=== PATIENT | female | born 1940 ===

== ENCOUNTER 2020-08-07 08:55 | Inpatient (IN) | payer MEDICARE, SELFPAY ==
[2020-08-07] VITALS (26 sets, daily range): BP systolic 103–219; BP diastolic 43–97; PULSE 58–98; RESP 11–21; TEMP 35.8–37.1; O2SAT 90–98; BMI 21.9; BMI 22.1
--- NOTE | 2020-08-07 | DI.RAD.S_ITS ---
PROCEDURE: XR PELVIS 1-2V INDICATIONS: INTER OP LEFT LINSEY TECHNIQUE: Intra-operative view of the pelvis and hip acquired. COMPARISON: None. FINDINGS: Bones: Intraoperative devices prior to placement of arthroplasty prostheses are in expected positions. No fractures or suspicious bony lesions. Soft tissues: Overlying surgical instruments are present, along with other intraoperative changes. Vascular stent in the right leg. IMPRESSION: Expected intraoperative appearance for left hemiarthroplasty. Dictated by: Nirali Virk M.D. on 08/08/2020 at 10:39 Approved by: Nirali Virk M.D. on 08/08/2020 at 10:40
--- NOTE | 2020-08-07 | DI.RAD.S_ITS ---
PROCEDURE: XR PELVIS 1-2V INDICATIONS: POST OP TECHNIQUE: 1 view of the lower pelvis acquired. COMPARISON: [facility], , XR PELVIS 1-2V, 08/07/2020, 16:48. FINDINGS: Bones: Patient is status post left hip arthroplasty, with hardware components in expected positions. The hip joint appears congruent. The visualized bony structures appear intact. Diffuse demineralization. Soft tissues: Overlying postoperative changes are noted. No suspicious soft tissue densities. Right proximal femoral vascular stent. IMPRESSION: Expected appearance of left hip arthroplasty. Dictated by: Nirali Virk M.D. on 08/08/2020 at 10:47 Approved by: Nirali Virk M.D. on 08/08/2020 at 10:48
--- NOTE | 2020-08-07 08:55 | ED.LOWEXIN ---
HPI - Extremity Injury (Lower) General Chief Complaint: Fall Stated Complaint: GLF Time Seen by Provider: 08/07/20 08:57 Source: patient, family and EMS Mode of arrival: EMS Limitations: no limitations History of Present Illness HPI Narrative: Patient is a 79-year-old female with history of peripheral vascular disease and hypertension presenting today after ground level fall with left hip pain. She says she was getting up to use the bathroom when she slipped and fell landing on her left hip. Not ambulatory afterwards. Denies any dizziness or chest pain, no head injury or loss of consciousness. She denies numbness or tingling. She does have severe peripheral vascular disease especially in her right leg where she is noted to have black and toes. She says that has been there for a long time she has been evaluated no surgery indicated at this time. She has arterial stents in her right leg. Related Data Home Medications Medication Instructions Recorded Confirmed aspirin [Aspirin Low Dose] 81 mg PO DAILY 08/07/20 08/07/20 atenolol 25 mg PO DAILY 08/07/20 08/07/20 clopidogrel 75 mg PO DAILY 08/07/20 08/07/20 Allergies Allergy/AdvReac Type Severity Reaction Status Date / Time Penicillins Allergy Mild Rash Verified 08/07/20 08:59 Review of Systems Review of Systems Narrative: GENERAL: Denies chills, fatigue, malaise, fever, sweats, travel HEENT: Denies sinus pain, ear pain, sore throat, difficulty swallowing, neck pain RESPIRATORY: Denies dyspnea, cough, wheezing, hemoptysis, sputum. CARDIOVASCULAR: Denies chest pain, palpitations, orthopnea, edema GASTROINTESTINAL: Denies nausea, vomiting, abdominal pain, diarrhea, constipation, melena. : Denies dysuria, frequency, incontinence, hematuria, urinary retention, flank pain. MUSCULOSKELETAL: See HPI SKIN: See HPI NEUROLOGIC: Denies weakness, dizziness, headache, numbness, change in speech, confusion PSYCHIATRIC: No concerning psychosocial issues. 12 point review of systems is negative except for those stated above and HPI Patient History Medical History Hypertension Peripheral vascular disease Surgical History (Updated 08/07/20 @ 11:44 by Dominic Mckeon DO) Hx of tubal ligation Social History household members: none Smoking Status: Never smoker Exam Initial Vital Signs Initial Vital Signs: Vital Signs Temperature 98 F 08/07/20 08:59 Pulse Rate 75 08/07/20 08:59 Respiratory Rate 18 08/07/20 08:59 Blood Pressure 219/97 H 08/07/20 08:59 Pulse Oximetry 97 08/07/20 08:59 GENERAL: Alert pleasant 79-year-old female and in no acute distress. HEENT: Head atraumatic,EOMI, pupils reactive, face symmetric, moist mucous membranes CARDIOVASCULAR: Regular rate and rhythm without murmurs, rubs or gallops. RESPIRATORY: Breath sounds equal bilaterally, no wheezes rales or rhonchi. ABDOMEN: Soft, nontender. Normoactive bowel sounds all 4 quadrants. No guarding or rebound. EXTREMITIES: Normal range of motion, no clubbing or edema. Neurovascularly intact Tender left hip knee is within normal limits ankle within normal limits. Difficult to palpate left pedal pulse but foot is warm. NEUROLOGICAL: Alert and oriented x4.Normal gait and speech. SKIN: Right toes are dry black and gangrenous and difficult to palpate a right pedal pulse. Left foot is erythematous blanchable but no blackening. Course Orders Ordered: ED Orders 08/07/20 08:54 XR hip w pel if done LT 2V Stat 08/07/20 09:13 XR chest 1V Stat 08/07/20 09:16 EKG-12 Lead Stat 08/07/20 09:20 Complete Blood Count AUTO DIFF Stat Comprehensive Metabolic Panel Stat Troponin & CK Cardiac Panel Stat Aspirin (Aspirin Ec 81 Mg Tablet) 81 mg PO DAILY ARTUR Atenolol (Atenolol 50 Mg Tablet) 25 mg PO DAILY ARTUR Sodium Chloride (Normal Saline 0.9%) 1,000 mls @ 100 mls/hr IV CONT ARTUR Stop: 08/07/20 21:29 Last Admin: 08/07/20 11:45 Dose: 100 mls/hr Documented by: Morphine Sulfate (Morphine 2 Mg/Ml Inj) 2 mg IV Q4HR PRN PRN Reason: Pain, Moderate (4-6) Naloxone HCl (Naloxone 0.4 Mg/Ml Vial) 0.2 mg IV Q2MIN PRN PRN Reason: Opiate Reversal Ondansetron HCl (Ondansetron 4 Mg/2 Ml Inj) 4 mg IV Q8HR PRN PRN Reason: Nausea And Vomiting Sennosides (Sennosides 8.6 Mg Tablet) 17.2 mg PO BEDTIME PRN PRN Reason: Constipation Discontinued Medications Cyclobenzaprine HCl (Cyclobenzaprine 5 Mg Tablet) 5 mg PO NOW ONE Stop: 08/07/20 11:28 Morphine Sulfate (Morphine 2 Mg/Ml Inj) 2 mg IV NOW ONE Stop: 08/07/20 09:32 Last Admin: 08/07/20 10:03 Dose: 2 mg Documented by: SHILOH Ondansetron HCl (Ondansetron 4 Mg/2 Ml Inj) 4 mg IV NOW ONE Stop: 08/07/20 09:32 Last Admin: 08/07/20 10:02 Dose: 4 mg Documented by: SHILOH Vital Signs Vital signs: Vital Signs - 8 hr 08/07/20 08:59 08/07/20 09:19 08/07/20 09:30 Temperature 98 F Pulse Rate 75 66 66 Respiratory Rate 18 Blood Pressure 219/97 H Pulse Oximetry 97 98 08/07/20 10:00 Temperature Pulse Rate 72 Respiratory Rate Blood Pressure 199/83 H Pulse Oximetry 98 MDM - Extremity Injury (Lower) Lab Data Attestation: I reviewed the patient's lab results. Result diagrams: 08/07/20 09:20 08/07/20 09:20 Labs: Lab Results 08/07/20 08/07/20 Range/Units 09:20 09:20 WBC 12.2 H (4.5-11.0) X10^3/uL RBC 4.09 (4.0-5.2) X10^6/uL Hgb 12.0 (12.0-16.0) g/dL Hct 36.1 (36-46) % MCV 88.3 (80-100) fL MCH 29.3 (26-34) PG MCHC 33.2 (30-36) % RDW 13.7 (11.6-14.8) % Plt Count 231 (150-400) X10^3/uL Neut % (Auto) 89.2 H (50-75) % Lymph % (Auto) 5.0 L (25-40) % [place] % (Auto) 4.7 (3-14) % Eos % (Auto) 0.8 L (2-4) % Baso % (Auto) 0.3 (0-2) % Neut # (Auto) 00668 H (1308-0231) /uL Lymph # (Auto) 600 L (8854-8645) /uL [place] # (Auto) 600 (0-900) /uL Eos # (Auto) 100 (0-450) /uL Baso # (Auto) 0 (0-100) /uL Sodium 136 L (137-145) mmol/L Potassium 4.0 (3.4-5.1) mmol/L Chloride 107 (98-107) mmol/L Carbon Dioxide 24 (22-32) mmol/L BUN 19 H (7-17) mg/dL Creatinine 0.56 (0.52-1.04) mg/dL Estimated GFR > 60.0 (>60) mL/min BUN/Creatinine Ratio 33.9 H (6-22) Glucose 125 H (80-110) mg/dL Calcium 9.1 (8.4-10.2) mg/dL Total Bilirubin 0.2 (0.2-1.3) mg/dL AST 29 (14-36) IU/L ALT 20 (<35) IU/L Alkaline Phosphatase 118 (38-126) U/L Total Creatine Kinase 49 (30-135) U/L CK-MB (CK-2) TNP CK-MB (CK-2) Rel Index TNP Troponin I < 0.012 (0.01-0.034) ng/mL Total Protein 7.6 (6.3-8.2) g/dL Albumin 4.2 (3.5-5.0) g/dL Globulin 3.4 (1.7-4.1) g/dL Albumin/Globulin Ratio 1.2 (1.0-2.8) Imaging Data Extremity x-ray #1: Radiologist's Impression: PROCEDURE: XR HIP W PEL IF DONE LT 2V INDICATIONS: fall pain TECHNIQUE: AP pelvis with lateral view(s) of the left hip(s). COMPARISON: None. FINDINGS: Bones: There is a left femoral neck fracture with mild displacement. Fracture fragment is also noted adjacent to the greater trochanter. However, no clearly identified intratrochanteric fracture is noted. Soft tissues: The visualized bowel gas pattern is normal. No suspicious soft tissue calcifications. IMPRESSION: Mild displacement of left femoral neck fracture. Dictated by: Ciara Alan M.D. on 08/07/2020 at 9:24 Chest x-ray: Radiologist's Impression: PROCEDURE: XR CHEST 1V INDICATIONS: HIP PAIN AFTER GROUND LEVEL FALL TECHNIQUE: One view of the chest was acquired. COMPARISON: None. FINDINGS: Surgical changes and devices: None. Lungs and pleura: A nodular density in the right lower lung zone is most likely caused by the costochondral calcification. Lungs are otherwise clear. No pleural effusions or pneumothorax. Mediastinum: Mediastinal contours appear normal. Heart size is normal. Bones and chest wall: No suspicious bony lesions. Overlying soft tissues appear unremarkable. IMPRESSION: 1. No acute cardiopulmonary disease. 2. A nodular density in the right lower lung zone is most likely caused by clots chondral calcification. But a lung nodule cannot be confidently excluded. A nonurgent chest CT is suggested for follow-up. Dictated by: Kathrin Steinberg M.D. on 08/07/2020 at 9:51 ECG Data Attestation: I personally reviewed and interpreted this ECG as follows: Prior ECG tracings: not available for review Interpretation: Normal sinus rhythm rate 71 p.r. interval 130 QRS [address] changes or T-wave inversions MDM Narrative Medical decision making narrative: Patient obviously has severe peripheral vascular does disease. And is quite hypertensive without signs of end-organ damage. She is given morphine to help with the pain and spasming. 10:05 Dr. Gould, orthopedics did patient's symptoms test results and reviewed x-ray agrees with admit to hospitalist. Keep NPO possible OR this evening versus tomorrow. 10:09am- Dr. burch hospitalist updated in patient's symptoms test results agrees with admission Discharge Plan Departure Patient Disposition: Admitted As Inpatient Clinical Impression: Closed fracture of left hip Qualifiers: Encounter type: initial encounter Qualified Code(s): S72.002A - Fracture of unspecified part of neck of left femur, initial encounter for closed fracture Admit Date/Time: 08/07/20 10:18 Admit Provider: Jazmín Burch
--- NOTE | 2020-08-07 09:13 | DI.RAD.S_ITS ---
PROCEDURE: XR CHEST 1V INDICATIONS: HIP PAIN AFTER GROUND LEVEL FALL TECHNIQUE: One view of the chest was acquired. COMPARISON: None. FINDINGS: Surgical changes and devices: None. Lungs and pleura: A nodular density in the right lower lung zone is most likely caused by the costochondral calcification. Lungs are otherwise clear. No pleural effusions or pneumothorax. Mediastinum: Mediastinal contours appear normal. Heart size is normal. Bones and chest wall: No suspicious bony lesions. Overlying soft tissues appear unremarkable. IMPRESSION: 1. No acute cardiopulmonary disease. 2. A nodular density in the right lower lung zone is most likely caused by clots chondral calcification. But a lung nodule cannot be confidently excluded. A nonurgent chest CT is suggested for follow-up. Dictated by: Kathrin Steinberg M.D. on 08/07/2020 at 9:51 Approved by: Kathrin Steinberg M.D. on 08/07/2020 at 9:53
[2020-08-07 09:27] LABS: Add Manual Diff / Slide Review NO; Basophils Absolute Auto 0 /uL (0-100); Basophils Percent Auto 0.3 % (0-2); Eosinophils Absolute Auto 100 /uL (0-450); Eosinophils Percent Auto 0.8 % (2-4); Hematocrit 36.1 % (36-46); Lymphocytes Absolute Auto 600 /uL (1100-4500); Mean Corpuscular HGB Conc 33.2 % (30-36); Mean Corpuscular Hemoglobin 29.3 PG (26-34); Mean Corpuscular Volume 88.3 fL (80-100); Monocytes Absolute Auto 600 /uL (0-900); Monocytes Percent Auto 4.7 % (3-14); Neutrophils Absolute Auto 10900 /uL (1500-7000); Neutrophils Percent Auto 89.2 % (50-75); Platelet Count 231 X10^3/uL (150-400); Red Blood Cell Count 4.09 X10^6/uL (4.0-5.2); Red Cell Distribution Width 13.7 % (11.6-14.8); White Blood Cell Count 12.2 X10^3/uL (4.5-11.0)
[2020-08-07 09:40] LABS: Alanine Aminotransferase 20 IU/L (<35); Albumin 4.2 g/dL (3.5-5.0); Albumin Globulin Ratio 1.2 (1.0-2.8); Alkaline Phosphatase 118 U/L (38-126); Aspartate Aminotransferase 29 IU/L (14-36); BUN Creatinine Ratio 33.9 (6-22); Bilirubin Total 0.2 mg/dL (0.2-1.3); Blood Urea Nitrogen 19 mg/dL (7-17); Calcium 9.1 mg/dL (8.4-10.2); Carbon Dioxide 24 mmol/L (22-32); Chloride 107 mmol/L (98-107); Creatine Kinase 49 U/L (30-135); Estimated Glomerular Filt Rate > 60.0 mL/min (>60); Globulin 3.4 g/dL (1.7-4.1); Glucose 125 mg/dL (80-110); HEMOLYSIS < 15 (0-50); Sodium 136 mmol/L (137-145); Total Protein 7.6 g/dL (6.3-8.2)
[2020-08-07 09:51] LABS: Troponin I < 0.012 ng/mL (0.01-0.034)
[2020-08-07] MEDS: ONDANSETRON 4 MG/2 ML INJ IV (10:02)
[2020-08-07] MEDS: MORPHINE 2 MG/ML INJ IV ×2 (10:03→12:14)
--- NOTE | 2020-08-07 10:42 | P.CONS_ITS ---
History of Present Illness Consult details Date Patient Seen: 08/07/20 Time Patient Seen: 10:42 Chief complaint: GLF Reason for consult: Displaced left intra-capsular femoral neck fracture Narrative: Patient is a 79-year-old female who had a ground level fall this morning. The fall does not appear to be with a 2 syncopal episode. She did not strike her head. She did not lose consciousness. After fall she was unable to ambulate but she was able +off of into a chair. Prior to her fall she is not have any history of left hip pain. She is a community ambulator without assistive devices. She lives independently i apartment on her daughter's property. Of note patient has multiple stents in the right lower extremity for peripheral vascular disease. She follows with Dr. Victor at [facility] for peripheral vascular disease. Patient takes Plavix and aspirin for blood thinners. Meds Home Medications and Allergies Home Medications Medication Instructions Recorded Confirmed Type aspirin [Aspirin Low Dose] 81 mg PO DAILY 08/07/20 08/07/20 History atenolol 25 mg PO DAILY 08/07/20 08/07/20 History clopidogrel 75 mg PO DAILY 08/07/20 08/07/20 History Allergies Allergy/AdvReac Type Severity Reaction Status Date / Time Penicillins Allergy Mild Rash Verified 08/07/20 08:59 Exam Vital Signs (past 8 hours): - 08/07/20 08:59 Temperature 98 F Pulse Rate 75 Respiratory Rate 18 Blood Pressure 219/97 H Pulse Oximetry 97 Oxygen Delivery Method Room Air Narrative Exam Narrative: Neurovascular intact in left lower extremity. No skin breaks over the left hip. Hip is held in a slightly flexed and externally rotated position Objective Labs Result Diagrams: 08/07/20 09:20 08/07/20 09:20 Labs: Laboratory Results - last 24 hr 08/07/20 08/07/20 09:20 09:20 WBC 12.2 H RBC 4.09 Hgb 12.0 Hct 36.1 MCV 88.3 MCH 29.3 MCHC 33.2 RDW 13.7 Plt Count 231 Neut % (Auto) 89.2 H Lymph % (Auto) 5.0 L [place] % (Auto) 4.7 Eos % (Auto) 0.8 L Baso % (Auto) 0.3 Neut # (Auto) 15152 H Lymph # (Auto) 600 L [place] # (Auto) 600 Eos # (Auto) 100 Baso # (Auto) 0 Sodium 136 L Potassium 4.0 Chloride 107 Carbon Dioxide 24 BUN 19 H Creatinine 0.56 Estimated GFR > 60.0 BUN/Creatinine Ratio 33.9 H Glucose 125 H Calcium 9.1 Total Bilirubin 0.2 AST 29 ALT 20 Alkaline Phosphatase 118 Total Creatine Kinase 49 CK-MB (CK-2) TNP CK-MB (CK-2) Rel Index TNP Troponin I < 0.012 Total Protein 7.6 Albumin 4.2 Globulin 3.4 Albumin/Globulin Ratio 1.2 Assessment & Plan Assessment & Plan narrative: Patient is a 79-year-old female who had a mechanical ground level fall without loss of consciousness earlier this a.m.. She is stained a displaced intracapsular femoral neck fracture of the left hip. Of note patient has multiple stents in the right lower extremity but no stents in the left lower extremity per the patient. I had a long discussion with the patient regarding her fracture as well as possible treatment options. I think patient would benefit from a left hip hemiarthroplasty. Patient will be admitted to the medicine service. Plan would be to perform this left hip hemiarthroplasty later today. - СВЕТЛАНА LLE - NPO - OCTOR for left hip hemiarthroplasty Time Spent With Patient Time with patient: Greater than 35 minutes
--- NOTE | 2020-08-07 11:37 | P.HP_ITS ---
History of Present Illness History of Present Illness Chief complaint: GLF Patient History Medical History Hypertension Peripheral vascular disease Surgical History (Updated 08/07/20 @ 11:44 by Dominic Mckeon DO) Hx of tubal ligation Family & Social History Social History: household members none Prior Living Arrangements House Safety & Behavioral: Feels Safe in Current Yes Environment Been Physically Hurt or No Threatened By a Person Suicidal Ideation Description None Suicide Plan Description No Plan Tobacco & Substance use: Smoking Status Never smoker alcohol intake frequency holiday/special occasion Substance Use Type does not use Meds Home Medications and Allergies Home Medications Medication Instructions Recorded Confirmed Type aspirin [Aspirin Low Dose] 81 mg PO DAILY 08/07/20 08/07/20 History atenolol 25 mg PO DAILY 08/07/20 08/07/20 History clopidogrel 75 mg PO DAILY 08/07/20 08/07/20 History Allergies Allergy/AdvReac Type Severity Reaction Status Date / Time Penicillins Allergy Mild Rash Verified 08/07/20 08:59 Review of Systems Review of Systems ROS: Yes All systems reviewed with the patient and are negative except as otherwise documented Constitutional Constitutional: Denies chills and Denies fever(s) Eyes Eyes: Denies blurry vision ENT Ears, Nose, Mouth, and Throat: No ear discharge and No otalgia Cardiovascular Cardiovascular: Denies chest pain, Denies syncope and Denies dyspnea Respiratory Respiratory: Denies dyspnea Gastrointestinal Gastrointestinal: Denies abdominal pain and Denies vomiting Genitourinary Genitourinary: Denies difficulty voiding, Denies urinary hesitancy and Denies urinary urgency Musculoskeletal Musculoskeletal: Reports arthralgias Neurologic Neurologic: Reports system reviewed and no additional complaints, except as documented and Denies syncope Psychiatric Psychiatric: Reports system reviewed and no additional complaints, except as documented Hematologic/Lymphatic Hematologic/Lymphatic: Denies easy bleeding and Denies easy bruising Exam Vital Signs (past 8 hours): - 08/07/20 08:59 08/07/20 09:19 08/07/20 09:30 Temperature 98 F Pulse Rate 75 66 66 Respiratory Rate 18 Blood Pressure 219/97 H Pulse Oximetry 97 98 08/07/20 10:00 08/07/20 10:30 08/07/20 10:31 Temperature Pulse Rate 72 58 L 66 Respiratory Rate Blood Pressure 199/83 H 164/69 H Pulse Oximetry 98 96 96 Oxygen Delivery Method Room Air Const General: cooperative, healthy appearing, comfortable and No acute distress [facility] Head: normal to inspection, normocephalic and atraumatic Eyes Conjunctivae: conjunctivae normal Sclera: sclerae normal Pupils: PERRL Neck Neck: normal visual inspection, full ROM, trachea midline and supple Chest Chest: normal inspection of the chest and normal palpation of entire chest wall Resp Effort & Inspection: normal respiratory effort Auscultation: clear to auscultation bilaterally, no rales, no rhonchi and no wheezes Cardio Palpation: normal PMI Rate: regular rate Rhythm: regular rhythm Heart Sounds: S1 normal and S2 normal GI Inspection: normal to inspection Palpation: soft, No guarding and No tender Auscultation: normal bowel sounds Skin General: no rashes or lesions noted and turgor normal Neuro General: patient alert, patient awake and patient oriented x3 Extrem Left lower extremity: hip/thigh (Externally rotated) Psych Affect: normal affect Attitude: cooperative Objective Labs Result Diagrams: 08/07/20 09:20 08/07/20 09:20 Labs: Laboratory Results - last 24 hr 08/07/20 08/07/20 09:20 09:20 WBC 12.2 H RBC 4.09 Hgb 12.0 Hct 36.1 MCV 88.3 MCH 29.3 MCHC 33.2 RDW 13.7 Plt Count 231 Neut % (Auto) 89.2 H Lymph % (Auto) 5.0 L [place] % (Auto) 4.7 Eos % (Auto) 0.8 L Baso % (Auto) 0.3 Neut # (Auto) 11703 H Lymph # (Auto) 600 L [place] # (Auto) 600 Eos # (Auto) 100 Baso # (Auto) 0 Sodium 136 L Potassium 4.0 Chloride 107 Carbon Dioxide 24 BUN 19 H Creatinine 0.56 Estimated GFR > 60.0 BUN/Creatinine Ratio 33.9 H Glucose 125 H Calcium 9.1 Total Bilirubin 0.2 AST 29 ALT 20 Alkaline Phosphatase 118 Total Creatine Kinase 49 CK-MB (CK-2) TNP CK-MB (CK-2) Rel Index TNP Troponin I < 0.012 Total Protein 7.6 Albumin 4.2 Globulin 3.4 Albumin/Globulin Ratio 1.2 Assessment & Plan Assessment and plan (1) Closed fracture of left hip: Problem details: She suffered a mechanical fall at home and is found to have closed displaced left intracapsular femoral neck fracture. She was evaluated by Dr. Gould who is planning to perform hemiarthroplasty this evening. She has an RCRI score of 0, which suggests a 3.9% 30 day risk of , mi, or cardiac arrest. Overall she is a intermediate risk for a intermediate risk surgery. -keep NPO, nonweightbearing left lower extremity, morphine as needed for pain -SCDs now, likely start pharmacological DVT prophylaxis tomorrow Qualifiers: Encounter type: initial encounter Qualified Code(s): S72.002A - Fracture of unspecified part of neck of left femur, initial encounter for closed fracture Status: Acute (2) Fall at home: Problem details: Status post mechanical fall at home. Denies LOC or head strike. Now with left femoral neck fracture. -will have PT evaluate patient postoperatively Status: Acute (3) Peripheral vascular disease: Problem details: History of PVD with right lower extremity stents. She is on aspirin and Plavix at home. -hold Plavix but continue aspirin in anticipation of surgery today -likely resume home Plavix following surgery Status: Acute (4) Hypertension: Problem details: Change initially presented with blood pressure of 219/97 in the setting of severe pain from acute left hip fracture. This improved the pain medications. -continue home atenolol Status: Acute
[2020-08-07] MEDS: SODIUM CHLORIDE 0.9% 1,000 ML 100 ML IV (11:45)
[2020-08-07] MEDS: CYCLOBENZAPRINE 5 MG TABLET PO (11:48)
--- NOTE | 2020-08-07 11:50 | PC.NURSE ---
Addendum entered by Candida Torres R.N. 08/07/20 15:01: Patient taken to OR Addendum entered by Candida Torres R.N. 08/07/20 14:48: Patient denies real need to void, attempted bed stout, unsuccessful. Bladder scanned for 300cc. Original Note: Patient to room, alert, oriented rates pain to left hip 3/10, patient c/o of cramping to upper abdomen, 8/10. Given 5mg Flexeril PO. Patient oriented to room and call light. Patient NPO for surgery later this afternoon.
[2020-08-07 11:55] LABS: COVID19 -Nasal RAPID Negative (Negative)
[2020-08-07 12:33] LABS: Add Manual Diff / Slide Review NO; Basophils Absolute Auto 0 /uL (0-100); Basophils Percent Auto 0.2 % (0-2); Eosinophils Absolute Auto 0 /uL (0-450); Eosinophils Percent Auto 0.1 % (2-4); Hematocrit 33.8 % (36-46); Hemoglobin 11.2 g/dL (12.0-16.0); Lymphocytes Absolute Auto 300 /uL (1100-4500); Lymphocytes Percent Auto 2.3 % (25-40); Mean Corpuscular Hemoglobin 29.3 PG (26-34); Mean Corpuscular Volume 88.7 fL (80-100); Monocytes Absolute Auto 600 /uL (0-900); Monocytes Percent Auto 4.4 % (3-14); Neutrophils Absolute Auto 13300 /uL (1500-7000); Platelet Count 224 X10^3/uL (150-400); Red Blood Cell Count 3.81 X10^6/uL (4.0-5.2); Red Cell Distribution Width 13.3 % (11.6-14.8); White Blood Cell Count 14.3 X10^3/uL (4.5-11.0)
[2020-08-07 12:55] LABS: BUN Creatinine Ratio 38.8 (6-22); Blood Urea Nitrogen 19 mg/dL (7-17); Calcium 8.9 mg/dL (8.4-10.2); Carbon Dioxide 24 mmol/L (22-32); Chloride 107 mmol/L (98-107); Estimated Glomerular Filt Rate > 60.0 mL/min (>60); Glucose 142 mg/dL (80-110); HEMOLYSIS < 15 (0-50); Potassium 4.1 mmol/L (3.4-5.1); Sodium 136 mmol/L (137-145)
[2020-08-07] MEDS: LACTATED RINGERS 1,000 ML 42 ML IV ×2 (15:18→16:38)
--- NOTE | 2020-08-07 15:34 | PM.PREOP ---
Pre-operative Note COVID-19 COVID-19 status: Negative Result date/Date tested (Pos, Neg/Pending): 08/07/20 Interval Note History & Physical reviewed/Exam performed by Physician: Yes Changes to H&P: No H&P completed within 30 days and has changed as indicated here:: Plan for left hip hemiarthroplasty. I discussed the risks and benefits of surgery with the patient including the risk of infection, dislocations, iatrogenic injury, fractures, incomplete relief of symptoms, need for future surgeries, DVT, PE, , etc.. Patient demonstrates understanding of the risks and benefits of surgery and wishes to proceed with a left hip hemiarthroplasty.
[2020-08-07] MEDS: CEFAZOLIN 2 GM/100 ML FROZ.PIGGY IV (15:52)
[2020-08-07] MEDS: TRANEXAMIC ACID 1,000 MG in SODIUM CHLORIDE 0.9% 100 ML 400 ML IV ×2 (16:19→17:49)
[2020-08-07] MEDS: ROPIVACAINE 0.5% PF 5 MG/ML 20ML VIAL 10 ML INJ (16:42)
--- NOTE | 2020-08-07 16:43 | SUR.OPER ---
Lateral on padded OR bed. Gel axillary roll. Arms secured on padded armboard with pillow supporting top arm. Padded hip positioner braces x4 - anterior and posterior chest and pelvis. Additional gel pad used anterior pelvis. Gel pad under bottom leg from knee to foot and secured with tape over sheet.
--- NOTE | 2020-08-07 18:08 | PM.OP.1 ---
Operative Date/Time/Diagnoses Date of procedure: 08/07/20 Time of procedure: 18:08 Pre-op diagnosis: let hip fracture Post-op diagnosis: same Procedure & Clinicians Procedure: Left hip cemented hemiarthroplasty Same procedure as scheduled: Yes Indications: Displaced intracapsular femoral neck fracture of the left hip Surgeon: Vahid Gould Compounding Pharmacy Technician: Darren Mas Anesthesia Type: General Operative Notes Findings: Displaced intracapsular femoral neck fracture disrupted capsule. Closure Type: primary Specimen(s): none sent Prosthetic devices, grafts, tissues, transplants, or devices: Benavidez and Nephew size 16 synergy cemented stem 14 mm distal centralizer 25 mm cement restrictor 45 mm cobalt chrome unipolar head with a +4 sleeve Estimated Blood Loss (mL): 300 Procedure in detail: Patient was met in the preop holding area where the site and side of surgery were marked by . Informed consent was reviewed the preoperative holding area and this included discussion of the risks and benefits of surgery risks include but are not limited to infection, dislocations, need for future surgeries, fractures, incomplete relief of symptoms, damage to local structures such as vessels nerves, DVT, PE, etc.. Patient demonstrates understanding the risks and benefits of surgery and wishes to proceed for a left hip hemiarthroplasty for a displaced femoral neck fracture. Patient was then brought back to the operating room where she was induced under general anesthesia. She was then placed in the right lateral decubitus position and all bony prominences were well padded. The left lower extremity then prepped and draped in normal sterile fashion. A surgical time-out was performed verifying site and side of surgery as well as the name of the patient. Starting at the prominence of the greater trochanter aiming approximately 45? superior and posterior a skin incision was made with a 10. Blade electrocautery was used to dissect down to the level of the ITB band and superior gluteal fascia. This was then incised with a new 10. Blade. Gluteus susana fibers were split in lieu length with her fibers. A Cobra retractor was then placed underneath the gluteus medius and the piriformis was then identified. A curved osteotome was placed underneath the piriformis and the piriformis were released off the back of the greater trochanter. The short external rotators were then taken down as a sleeve. The piriformis was tagged. At this point it was noted there was a capsular rent. A capsulotomy was then performed and the corner of the capsule was then tagged. This point dark fracture hematoma was seen and evacuated from the wound. The head was then removed using a corkscrew poor bone quality was noted this point. A femoral neck elevator was then placed underneath the femur and a revision femoral neck cut was then performed with an oscillating saw. The suction tip was then used as a canal finer. The then began hand reaming up in sizes and ended with a 14 mm hand reamed canal and then began broaching with a size 10. I then placed a size 14 broach placed a standard offset neck and a 45+ 0 head this hip was then reduced fluoroscopy was brought in for comparison of leg lengths and canal fill. It was noted that the stem was in varus and we will short on this side. The hip was then dislocated and the trial components removed. A lateralizer was then used followed by hand reaming up to a size 16. I then broached to a size 16 trial with a standard offset neck with a +4 head and this had excellent stability through range of motion in position of sleep as well as flexion to 90? and internal rotation to about 75?. Hip was then dislocated the trial components were removed the distal canal was then sized to a 14 mm centralizer a cement restrictor was then placed the canal was then prepped using pulse lavage brush and suction. The cement was then mixed and cement was then filled from the distal aspect of the canal proximal and then was pressurized. The stem was then placed in the cement mantle and held until the cement was fully cured. A size 40 5+4 head was then malleted onto the trunnion and reduced the soft tissue was then pulse lavaged with normal saline periarticular local anesthetic was infiltrated into the capsule as well as soft tissues about the hip. The capsulotomy was then repaired using a running Ethibond suture followed by repair of the piriformis using a bone tunnel through the greater trochanter and the 2nd limb of the suture through the abductor tendon. The ITB band was then closed using interrupted Vicryl as interrupted fashion. The superior gluteal fascia was then closed using a running locking suture a 1. Vicryl was then used in the fat layer is a running suture followed by 2 Vicryl in the subcutaneous layer followed by elly on skin an Aquacel dressing. Complications: none Post-operative Condition: stable Disposition: PACU Plan for aftercare: WBAT LLE, 24 hours post-op abx, restart ASA and plavix for DVT prophyalxis, posterior hip precautions
[2020-08-07] MEDS: LACTATED RINGERS 1,000 ML 75 ML IV (19:33)
[2020-08-07] MEDS: ACETAMINOPHEN 325 MG TABLET 650 MG PO (20:52)
[2020-08-07] MEDS: DOCUSATE 100 MG CAPSULE PO (20:53)
[2020-08-07] MEDS: OXYCODONE IR 5 MG TABLET PO (20:53)
[2020-08-08] VITALS (10 sets, daily range): BP systolic 106–147; BP diastolic 47–71; PULSE 81–97; RESP 16–18; TEMP 36.3–37.1; O2SAT 90–98
[2020-08-08] MEDS: OXYCODONE IR 5 MG TABLET PO ×3 (00:38→08:47)
[2020-08-08] MEDS: CEFAZOLIN 2 GM/100 ML FROZ.PIGGY IV ×2 (00:38→08:48)
[2020-08-08 05:01] LABS: Hemoglobin 8.1 g/dL (12.0-16.0)
[2020-08-08 05:10] LABS: Hematocrit 24.5 % (36-46)
--- NOTE | 2020-08-08 08:07 | P.PN_ITS ---
Subjective Subjective Date Patient Seen: 08/08/20 Time Patient Seen: 08:08 Interval history: POD #1 s/p L hip hemiarthroplasty with Dr. Gould. Patient complains of left hip muscle spasms. She has not been up with PT yet today. Exam Vital Signs (past 8 hours): - 08/08/20 01:00 08/08/20 03:27 08/08/20 05:00 Temperature 98.1 F Pulse Rate 81 Respiratory Rate 18 Blood Pressure 106/47 L Pulse Oximetry 96 94 94 Oxygen Delivery Method Room Air Oxygen Flow Rate 0 Narrative Exam Narrative: Patient lying in bed in NAD. She is alert and oriented X3. Calves are soft, compressible, and nontender bilaterally. SILT throughout BLEs. She is able to actively dorsiflex and plantarflex. Dressing on left hip is CDI. SCDs on and functioning. Objective Labs Result Diagrams: 08/08/20 04:30 08/07/20 11:57 Labs: Laboratory Results - last 24 hr 08/07/20 08/07/20 08/07/20 09:20 09:20 10:35 WBC 12.2 H RBC 4.09 Hgb 12.0 Hct 36.1 MCV 88.3 MCH 29.3 MCHC 33.2 RDW 13.7 Plt Count 231 Neut % (Auto) 89.2 H Lymph % (Auto) 5.0 L [place] % (Auto) 4.7 Eos % (Auto) 0.8 L Baso % (Auto) 0.3 Neut # (Auto) 36199 H Lymph # (Auto) 600 L [place] # (Auto) 600 Eos # (Auto) 100 Baso # (Auto) 0 PT INR Sodium 136 L Potassium 4.0 Chloride 107 Carbon Dioxide 24 BUN 19 H Creatinine 0.56 Estimated GFR > 60.0 BUN/Creatinine Ratio 33.9 H Glucose 125 H Calcium 9.1 Total Bilirubin 0.2 AST 29 ALT 20 Alkaline Phosphatase 118 Total Creatine Kinase 49 CK-MB (CK-2) TNP CK-MB (CK-2) Rel Index TNP Troponin I < 0.012 Total Protein 7.6 Albumin 4.2 Globulin 3.4 Albumin/Globulin Ratio 1.2 SARS-CoV-2 (PCR) Negative Blood Type Antibody Screen 08/07/20 08/07/20 08/07/20 11:57 11:57 11:57 WBC 14.3 H RBC 3.81 L Hgb 11.2 L Hct 33.8 L MCV 88.7 MCH 29.3 MCHC 33.0 RDW 13.3 Plt Count 224 Neut % (Auto) 93.0 H Lymph % (Auto) 2.3 L [place] % (Auto) 4.4 Eos % (Auto) 0.1 L Baso % (Auto) 0.2 Neut # (Auto) 39347 H Lymph # (Auto) 300 L [place] # (Auto) 600 Eos # (Auto) 0 Baso # (Auto) 0 PT 12.0 INR 1.0 Sodium 136 L Potassium 4.1 Chloride 107 Carbon Dioxide 24 BUN 19 H Creatinine 0.49 L Estimated GFR > 60.0 BUN/Creatinine Ratio 38.8 H Glucose 142 H Calcium 8.9 Total Bilirubin AST ALT Alkaline Phosphatase Total Creatine Kinase CK-MB (CK-2) CK-MB (CK-2) Rel Index Troponin I Total Protein Albumin Globulin Albumin/Globulin Ratio SARS-CoV-2 (PCR) Blood Type Antibody Screen 08/07/20 08/08/20 11:57 04:30 WBC RBC Hgb 8.1 L Hct 24.5 L MCV MCH MCHC RDW Plt Count Neut % (Auto) Lymph % (Auto) [place] % (Auto) Eos % (Auto) Baso % (Auto) Neut # (Auto) Lymph # (Auto) Pet[place] # (Auto) Eos # (Auto) Baso # (Auto) PT INR Sodium Potassium Chloride Carbon Dioxide BUN Creatinine Estimated GFR BUN/Creatinine Ratio Glucose Calcium Total Bilirubin AST ALT Alkaline Phosphatase Total Creatine Kinase CK-MB (CK-2) CK-MB (CK-2) Rel Index Troponin I Total Protein Albumin Globulin Albumin/Globulin Ratio SARS-CoV-2 (PCR) Blood Type O Positive Antibody Screen Negative [facility] Medical History Hypertension Peripheral vascular disease Surgical History Hx of tubal ligation Social History household members: none Smoking Status: Never smoker alcohol intake: current Assessment & Plan Post-op Postoperative Procedures: Procedures Operation Date: 08/07/20 15:30 Actual Procedures Side Surgeon p Hip Hemiarthroplasty Anastacio Left Vahid Gould MD Patient can mobilize with PT today. WBAT, and Posterior hip precautions. Continue VTE prophylaxis. Hospitalist managing multiple comorbidities.
[2020-08-08] MEDS: CLOPIDOGREL 75 MG TABLET PO (08:47)
[2020-08-08] MEDS: DOCUSATE 100 MG CAPSULE PO ×2 (08:47→21:41)
[2020-08-08] MEDS: ASPIRIN EC 81 MG TABLET PO ×2 (08:47→21:41)
[2020-08-08] MEDS: ACETAMINOPHEN 325 MG TABLET 650 MG PO (08:48)
[2020-08-08] MEDS: LACTATED RINGERS 1,000 ML 75 ML IV (08:52)
--- NOTE | 2020-08-08 10:10 | PT.IPTN ---
Current Diagnoses Essential (primary) hypertension (08/07/20) Peripheral vascular disease, unspecified (08/07/20) Fracture of unspecified part of neck of left femur, initial encounter for closed fracture (08/07/20) Unspecified fall, initial encounter (08/07/20) Unspecified place in unspecified non-institutional (private) residence as the place of occurrence of the external cause (08/07/20) Surgery Performed Operation Date: 08/07/20 15:30 Actual Procedures p Hip Hemiarthroplasty Anastacio(Left) - Vahid Gould MD Physical Therapy Treatment Note M3 PT-IP Subjective Start: 08/08/20 12:39 Freq: NEEDED Status: Active Protocol: Document 08/08/20 10:10 AB (Rec: 08/08/20 12:43 AB [id number]) Subjective Physical Therapy Visit Type Type Patient Refusal Notes checked on pt x 2 but refused PT. c/o excruciating pain and stated that she will not be able to move. obtained home set up and PLOF. will f/ u.
[2020-08-08] MEDS: HYDROMORPHONE 0.5 MG INJ IV ×2 (10:44→12:56)
[2020-08-08] MEDS: OXYCODONE IR 5 MG TABLET 10 MG PO ×2 (11:19→21:41)
[2020-08-08] MEDS: hydrOXYzine pamoate 25 MG CAPSULE PO (12:26)
--- NOTE | 2020-08-08 13:00 | PT.IIE ---
Current Diagnoses Essential (primary) hypertension (08/07/20) Peripheral vascular disease, unspecified (08/07/20) Fracture of unspecified part of neck of left femur, initial encounter for closed fracture (08/07/20) Unspecified fall, initial encounter (08/07/20) Unspecified place in unspecified non-institutional (private) residence as the place of occurrence of the external cause (08/07/20) Surgery Performed Operation Date: 08/07/20 15:30 Actual Procedures p Hip Hemiarthroplasty Anastacio(Left) - Vahid Gould MD Surgical History (Last Reviewed 08/08/20 @ 08:09 by Ivette Luna PA-C) Hx of tubal ligation Medical History (Last Reviewed 08/08/20 @ 08:09 by Ivette Luna PA-C) Hypertension Peripheral vascular disease Physical Therapy Inpatient Evaluation/Re-Eval M1 PT/OT-IP Prior Functional Status Start: 08/08/20 12:39 Freq: NEEDED Status: Active Protocol: Document 08/08/20 13:00 AB (Rec: 08/08/20 16:02 AB [email or web address]) Medical Review Prior Functional Status Medical History Reviewed Yes Communication able to make needs known Mobility and Gait pt stated that larisa is indpeendent with all mobilities and ambulation without AD Social History Household Members none Living Arrangements House Number of Floors (Floors) One Floor Number of Stairs To Enter/Railing? 2 steps without rails Home Environment Standard Height Toilet,Walk in Shower,Built-In Shower Seat Additional Social History Comment pt stated that she lives in the same lot as her daughter and son-in-law and that she can stay at her daughter's house upon d/c. inform above is regarding daughter's home set up M2 PT-IP Current Condition Start: 08/08/20 12:39 Freq: NEEDED Status: Active Protocol: Document 08/08/20 13:00 AB (Rec: 08/08/20 16:02 AB [email or web address]) Physical Therapy Current Condition Current Condition Evaluation Date 08/08/20 Treatment Diagnosis L femur fx s/p hemiarthoplasty ; difficulty in walking Onset Date 08/07/20 Precautions Posterior Hip Precautions No Hip Flexion > 90 degrees,No Hip Internal Rotation,No Hip Adduction Weight Bearing Status Weight Bearing Status Weight Bear as Tolerated Allowed Weight Bearing Amount (enter % LLE WBAT or #) (%) M3 PT-IP Subjective Start: 08/08/20 12:39 Freq: NEEDED Status: Active Protocol: Document 08/08/20 13:00 AB (Rec: 08/08/20 16:02 AB [email or web address]) Subjective Physical Therapy Visit Type Type Initial Evaluation Visit Start Time 13:00 Visit Stop Time 14:16 Total Visit Minutes 76 Number of CORN DETASSELER Visits 0 Physical Therapy Visit Comments Patient Comments pt is agreed to try to sit up on EOB Therapy Pain Assessment Pain When Pain Assessed At Rest Pain Present Pain Present Pain Reported Location Bilateral Ankle Intensity 9 Scale Used Numeric (0 - 10) Pain Management Techniques Distraction,Modification of Treatment,Re-positioning, Timing of Activity with Medications Left Hip Intensity 9 Pain Management Techniques Apply Cold,Distraction, Modification of Treatment,Re- positioning,Timing of Activity with Medications M4 PT-IP Mobility and Gait Start: 08/08/20 12:39 Freq: NEEDED Status: Active Protocol: Document 08/08/20 13:00 AB (Rec: 08/08/20 16:02 AB [email or web address]) PT-Bed Mobility Assessment Supine to Sit Supine to Sit Minimal Assistance,Head of Bed Elevated,Bedrails Sit to Supine Sit to Supine Maximum Assistance,1 Person Assistance,Bedrails PT-Transfer Assessment Sit to and From Stand Sit to and from Stand Maximum Assistance,1 Person Assistance,Use of Upper Extremities Equipment Transfer Assistive Device Gait Belt,Front Wheeled Walker Orthotic/Prosthetic Devices or Brace: No Comments Mobility Comments educated pt on posterior hip precautions. pt requires cues to recall. completed supine to sit min A and cues for techniques. pt was able to sit on EOB CGA. pt c/o dizziness and nausea. BP 144/ 70. tolerated ~ 3 min of sitting and dizziness dissipated. completed sit to stand max A and cues and only tolerated ~ 15 sec of standing and c/o dizziness and pt requested to sit down. required cues to maintain hip precautions. pt required max A to scoot towards HOB. completed sit to supine max A and max cues. positioned in bed. call light and table placed wtihin reach. ice pack provided. Gait Assessment Comments Gait Comments unable at this time PT-Balance Assessment Sitting Balance and Reactions Static Sitting Balance Ability Good Dynamic Sitting Balance Ability Fair Standing Balance and Reactions Static Standing Balance Ability Poor Dynamic Standing Balance Ability Poor Device Used FWW M5 PT-IP Objective Assessments Start: 08/08/20 12:39 Freq: NEEDED Status: Active Protocol: Document 08/08/20 13:00 AB (Rec: 08/08/20 16:02 AB [id number]) Orientation Orientation/Cognition Level of Alertness Alert Orientation Name,Place,Situation Language Function Ability Hard of Hearing Safety Awareness Decreased Safety Awareness Memory Description Short Term Impaired Gross Range of Motion Lower Extremity ROM Assessment Within Functional Limits Strength Lower Extremity Strength Assessment Bilaterally Impaired Hip 3+/5 Knee 3+/5 Muscle Tone Muscle Tone WNL Yes M6 PT-IP Treatment Start: 08/08/20 12:39 Freq: NEEDED Status: Active Protocol: Document 08/08/20 13:00 AB (Rec: 08/08/20 16:02 AB [email or web address]) Physical Therapy Treatment Exercises Exercises Heel Slides Education Education Provided Precautions,Weight Bearing Status,Post-Op Packet,Safety M7 PT-IP Assessment and Plan Start: 08/08/20 12:39 Freq: NEEDED Status: Active Protocol: Document 08/08/20 13:00 AB (Rec: 08/08/20 16:02 AB [email or web address]) PT Summary Assessment and Plan Potential Rehabilitation Potential Good Status of Condition at Evaluation Evolving Summary Impairments Pain,ROM,Strength,Balance, Coordination,Sensation,Tone, Cognition,Bed Mobility, Transfers,Gait,Activity Tolerance Assessment Summary pt requiring max A with sit to stand and unable to tolerate much activity due to c/o pain, dizziness/nausea. pt unable to ambulate at this time. Pt will need SNF rehab to improve strength and mobility. Goals Bed Mobility Goal Standby Assistance Transfer Goal Contact Guard Assistance,Front Wheeled Walker Gait Goal Contact Guard Assistance,Front Wheel Walker Gait Distance 100 Days to Meet Goals 5 Frequency of Treatment Frequency Of Treatment Twice a Day Treatment Plan Physical Therapy Treatment Plan Bed Mobility Training,Transfer Training,Gait Training, Therapeutic Exercise,Balance Retraining,Post Op Education, Discharge Planning,Hot or Cold Pack,Neuromuscular Re-ed, Coordination Retraining,Manual Therapy Recommendations To Nursing Amount of Assist Needed PT/OT Assist Only Discharge Recommendations PT Discharge Recommendations SNF Rehab Transportation Needs at Discharge Wheelchair/Cabulance,Stretcher /Ambulance
--- NOTE | 2020-08-08 13:19 | CM.DANOTE ---
Addendum entered by Adrienne Marinelli LPN 08/08/20 13:55: Austyn states family consensus is [facility] and that she has already spoken with Teresa at [facility]. Am now faxing clinical notes to Teresa and she will work on the auth process this afternoon. Original Note: Discharge Planning/Care Management DCP: assessment: case received, EMR reviewed and discussed in Team Rounds. PT/OT ordered. Pt has thus far been unable to work with therapy because of pain levels. Met now with pt and her daughter Austyn Wells, at bedside. Introduced self and role. Pt admitted yesterday to care of hospitalist team yesterday. She was taken to surgery to repair fractured hip after a ground level fall: Dr. Gould : L hip cemented hemiarthroplasty/posterior precautions. She carries multiple comorbidities: R leg with history of multiple stents and toes that are blackened. (she sees vascular specialist Dr. Villasenor) She has dx of Rheumatoid arthritis. Payer: [employer] Medicare Admission status: INPT: confirmed by [facility] DEEPTHI Soliz. Austyn and pt both acknowledge that snf rehab stay will be needed. Gave them Medicare/snf choice list. Discussed also need to utilize a facility that is network with [employer] Medicare (who contract with [facility] and then is often contracted out to [facility] depending on the plan). Have spoken with Najma/MARK and DOUG/Teresa and both confirm that the auth process will be slowed significantly if more than one snf is trying to obtain auth at the same time. Explained this to Austyn and need to begin this process as this is Tuesday afternoon. She asks for an hour to look at the snf information and discuss with family and then will provide choices. Will follow up. Advanced directive, confirm from FAMILY Start: 08/07/20 11:30 Freq: Q24H Status: Complete Protocol: Document 08/07/20 11:30 SFP (Rec: 08/07/20 11:30 SFP [id number]) Advance Directive, confirm on record Time 11:30 Person contacted austyn Copy received No Document 08/07/20 14:38 SFP (Rec: 08/07/20 14:39 SFP [id number]) Advance Directive, confirm on record Time 11:30 Person contacted austyn Copy received Yes CM Discharge Assessment Start: 02/19/21 13:18 Freq: Status: Active Protocol: Document 08/08/20 13:18 ITV (Rec: 08/08/20 13:19 ITV [id number]) Discharge Planning Assessment Advance Directives? Yes Advance Directives on File No History Provided By Patient,Family Member Has Patient been admitted in last 30 No days? Prior Living Arrangements House Household Members none Is patient alert and oriented? Yes Referrals Initiated Group Home Review Status In Process
[2020-08-08] MEDS: atenoloL 50 MG TABLET 25 MG PO (13:59)
[2020-08-08] MEDS: ONDANSETRON 4 MG ODT PO (13:59)
--- NOTE | 2020-08-08 17:07 | PM.PN.1 ---
Subjective Subjective Date Patient Seen: 08/08/20 Interval history: The patient is a 79-year-old female who is status post left hip E me arthroplasty, with a history of hypertension, history of peripheral vascular disease. Patient is postop day 1. She had significant pain earlier today and her pain medications were adjusted. She is much more comfortable this evening. She was able to get up with physical therapy today although she was unable to ambulate. Exam Vital Signs (past 8 hours): - 08/08/20 12:00 08/08/20 16:39 Temperature 97.9 F 98.1 F Pulse Rate 87 97 H Respiratory Rate 17 16 Blood Pressure 128/56 L 147/71 H Pulse Oximetry 92 92 Oxygen Delivery Method Room Air Oxygen Flow Rate 0 Narrative Exam Narrative: Pleasant female much more comfortable now after medication Earlier today the patient was in excruciating pain and quite tearful Lungs: Clear to auscultation Cardiac exam regular rate and rhythm normal S1-S2 Abdomen: Soft and nontender Objective Labs Result Diagrams: 08/08/20 04:30 08/07/20 11:57 Labs: Laboratory Results - last 24 hr 08/08/20 04:30 Hgb 8.1 L Hct 24.5 L PFSH Medical History Hypertension Peripheral vascular disease Surgical History Hx of tubal ligation Social History household members: none Smoking Status: Never smoker alcohol intake: current Assessment & Plan Assessment & Plan narrative: 1. Status post left hip hemiarthroplasty -secondary to ground level fall, likely a result of underlying osteoporosis -continue current pain regimen, this includes Tylenol, Vistaril, Dilaudid, and oxycodone -hopefully can taper off the IV Dilaudid tomorrow -with start calcium and vitamin-D 2. Peripheral vascular disease -continue aspirin and Plavix 3. Hypertension -continue atenolol 4. DVT prophylaxis -per ortho Anticipate discharge to senior living and 2 additional days.
[2020-08-08] MEDS: ACETAMINOPHEN 325 MG TABLET 975 MG PO (17:18)
[2020-08-09] VITALS (11 sets, daily range): BP systolic 104–140; BP diastolic 46–68; PULSE 84–98; RESP 14–16; TEMP 36.2–37.4; O2SAT 91–99
[2020-08-09 05:37] LABS: Add Manual Diff / Slide Review NO; Basophils Absolute Auto 0 /uL (0-100); Basophils Percent Auto 0.9 % (0-2); Eosinophils Absolute Auto 300 /uL (0-450); Eosinophils Percent Auto 5.8 % (2-4); Hematocrit 22.8 % (36-46); Hemoglobin 7.7 g/dL (12.0-16.0); Lymphocytes Absolute Auto 600 /uL (1100-4500); Lymphocytes Percent Auto 10.7 % (25-40); Mean Corpuscular HGB Conc 33.5 % (30-36); Mean Corpuscular Hemoglobin 29.6 PG (26-34); Mean Corpuscular Volume 88.5 fL (80-100); Monocytes Absolute Auto 600 /uL (0-900); Monocytes Percent Auto 9.7 % (3-14); Neutrophils Absolute Auto 4200 /uL (1500-7000); Neutrophils Percent Auto 72.9 % (50-75); Platelet Count 154 X10^3/uL (150-400); Red Blood Cell Count 2.58 X10^6/uL (4.0-5.2); Red Cell Distribution Width 13.8 % (11.6-14.8); White Blood Cell Count 5.7 X10^3/uL (4.5-11.0)
[2020-08-09 05:52] LABS: Blood Urea Nitrogen 14 mg/dL (7-17); Calcium 8.2 mg/dL (8.4-10.2); Carbon Dioxide 29 mmol/L (22-32); Chloride 104 mmol/L (98-107); Estimated Glomerular Filt Rate > 60.0 mL/min (>60); Glucose 100 mg/dL (80-110); HEMOLYSIS < 15 (0-50); Potassium 4.4 mmol/L (3.4-5.1); Sodium 132 mmol/L (137-145)
--- NOTE | 2020-08-09 05:59 | PC.NURSE ---
Ezekiel Boggs notified in person with pt's. H&H result this am of 7.7/22.8, no new order received.
[2020-08-09] MEDS: HYDROMORPHONE 0.5 MG INJ IV (06:09)
[2020-08-09] MEDS: CHOLECALCIFEROL (VITAMIN D3) 1,000 UNIT TABLET 2000 UNIT PO (09:19)
[2020-08-09] MEDS: ASPIRIN EC 81 MG TABLET PO ×2 (09:19→21:31)
[2020-08-09] MEDS: DOCUSATE 100 MG CAPSULE PO ×2 (09:19→21:30)
[2020-08-09] MEDS: CALCIUM CARBONATE 500 MG TAB 1000 MG PO ×2 (09:19→21:31)
[2020-08-09] MEDS: OXYCODONE IR 5 MG TABLET 10 MG PO ×2 (09:20→20:16)
[2020-08-09] MEDS: atenoloL 50 MG TABLET 25 MG PO (09:20)
[2020-08-09] MEDS: CLOPIDOGREL 75 MG TABLET PO (09:20)
--- NOTE | 2020-08-09 10:34 | PM.PN.1 ---
Subjective Subjective Date Patient Seen: 08/09/20 Time Patient Seen: 10:34 Interval history: Pain is controlled. Slow to progress with PT. Exam Vital Signs (past 8 hours): - 08/09/20 05:59 08/09/20 06:16 08/09/20 07:50 Temperature 98.8 F 98.3 F Pulse Rate 91 H 93 H Respiratory Rate 16 16 Blood Pressure 140/60 138/52 L Pulse Oximetry 91 94 99 08/09/20 10:12 Temperature Pulse Rate Respiratory Rate Blood Pressure Pulse Oximetry 93 Oxygen Delivery Method Room Air Oxygen Flow Rate 0 Narrative Exam Narrative: Patient lying in bed in NAD. She is alert and oriented X3. Calves are soft, compressible, and nontender bilaterally. SILT throughout BLEs. She is able to actively dorsiflex and plantarflex. Dressing on left hip is CDI. SCDs on and functioning. Objective Labs Result Diagrams: 08/09/20 05:05 08/09/20 05:05 Labs: Laboratory Results - last 24 hr 08/09/20 08/09/20 05:05 05:05 WBC 5.7 D RBC 2.58 L Hgb 7.7 L Hct 22.8 L MCV 88.5 MCH 29.6 MCHC 33.5 RDW 13.8 Plt Count 154 Neut % (Auto) 72.9 D Lymph % (Auto) 10.7 L [place] % (Auto) 9.7 Eos % (Auto) 5.8 H Baso % (Auto) 0.9 Neut # (Auto) 4200 Lymph # (Auto) 600 L [place] # (Auto) 600 Eos # (Auto) 300 Baso # (Auto) 0 Sodium 132 L Potassium 4.4 Chloride 104 Carbon Dioxide 29 BUN 14 Creatinine 0.61 Estimated GFR > 60.0 BUN/Creatinine Ratio 23.0 H Glucose 100 Calcium 8.2 L PFSH Medical History Hypertension Peripheral vascular disease Surgical History Hx of tubal ligation Social History household members: none Smoking Status: Never smoker alcohol intake: current Assessment & Plan Assessment & Plan narrative: Patient can mobilize with PT today. WBAT, and Posterior hip precautions. Continue VTE prophylaxis. Hospitalist managing multiple comorbidities.
--- NOTE | 2020-08-09 11:11 | PT.IPTN ---
Current Diagnoses Essential (primary) hypertension (08/07/20) Peripheral vascular disease, unspecified (08/07/20) Fracture of unspecified part of neck of left femur, initial encounter for closed fracture (08/07/20) Unspecified fall, initial encounter (08/07/20) Unspecified place in unspecified non-institutional (private) residence as the place of occurrence of the external cause (08/07/20) Surgery Performed Operation Date: 08/07/20 15:30 Actual Procedures p Hip Hemiarthroplasty Anastacio(Left) - Vahid Gould MD Physical Therapy Treatment Note M2 PT-IP Current Condition Start: 08/08/20 12:39 Freq: NEEDED Status: Active Protocol: Document 08/08/20 13:00 AB (Rec: 08/08/20 16:02 AB [id number]) Physical Therapy Current Condition Current Condition Evaluation Date 08/08/20 Treatment Diagnosis L femur fx s/p hemiarthoplasty ; difficulty in walking Onset Date 08/07/20 Precautions Posterior Hip Precautions No Hip Flexion > 90 degrees,No Hip Internal Rotation,No Hip Adduction Weight Bearing Status Weight Bearing Status Weight Bear as Tolerated Allowed Weight Bearing Amount (enter % LLE WBAT or #) (%) M3 PT-IP Subjective Start: 08/08/20 12:39 Freq: NEEDED Status: Active Protocol: Document 08/09/20 10:53 CLB (Rec: 08/09/20 11:27 CLB [id number]) Subjective Physical Therapy Visit Type Type Treatment Note Visit Start Time 10:53 Visit Stop Time 11:11 Total Visit Minutes 18 Notes Co-treat with OT Number of CONTRACT AGENT Visits 1 Physical Therapy Visit Comments Patient Comments Pt needing to use BSC Therapy Pain Assessment Pain When Pain Assessed During Weight Bearing Pain Present Pain Present Pain Reported Location Left Hip Intensity 7 Pain Management Techniques Apply Cold,Distraction, Modification of Treatment,Re- positioning,Timing of Activity with Medications M4 PT-IP Mobility and Gait Start: 08/08/20 12:39 Freq: NEEDED Status: Active Protocol: Document 08/09/20 10:53 CLB (Rec: 08/09/20 11:27 CLB [id number]) PT-Bed Mobility Assessment Supine to Sit Supine to Sit Contact Guard Assistance Scooting Scooting to Edge of Bed Moderate Assistance PT-Transfer Assessment Sit to and From Stand Sit to and from Stand Moderate Assistance,2 Person Assistance,Use of Upper Extremities Equipment Transfer Assistive Device Gait Belt,Front Wheeled Walker Orthotic/Prosthetic Devices or Brace: No Transfers Transfer Destination Chair Transfer Technique Stand Step Pivot Transfer Ability Level of Assist Minimal Assistance,2 Person Assistance,Use of Upper Extremities Comments Mobility Comments Pt recalled 2/3 hip precautions. Pt able to sit CGA and then required Max A for scooting. Pt required Mod A x2 for sit-stand. Pt then required Max cuing for step sequencing with walker and Min A x2 w/FWW for transfer. Pt required cues to reach back for arms of chair, put LLE out before sitting. Pt able to scoot back in chair SBA. Left pt in chair with OT present. Gait Assessment Gait Gait Assistance Required: Moderate Assistance,2 Person Assist Distance (Feet) 3 Able to Maintain Weight Bearing Status Yes During Gait Assistive Devices Assistive Device Gait Belt,Front Wheeled Walker Orthotic/Prosthetic Devices or Brace: No Gait Deviations General Gait Pattern Antalgic,Decreased Stride Length,Decreased Feet Clearance,Step-to Gait Factors Limiting Gait Function Factors Limiting Gait Function Decreased Activity Tolerance, Decreased Strength,Limited Range of Motion,Pain,Poor Balance,Poor Safety Awareness Comments Gait Comments Pt required Mod A x2 for transfer with verbal cues for sequencing steps with FWW. Pt with posterior lean. M5 PT-IP Objective Assessments Start: 08/08/20 12:39 Freq: NEEDED Status: Active Protocol: Document 08/08/20 13:00 AB (Rec: 08/08/20 16:02 AB [id number]) Orientation Orientation/Cognition Level of Alertness Alert Orientation Name,Place,Situation Language Function Ability Hard of Hearing Safety Awareness Decreased Safety Awareness Memory Description Short Term Impaired Gross Range of Motion Lower Extremity ROM Assessment Within Functional Limits Strength Lower Extremity Strength Assessment Bilaterally Impaired Hip 3+/5 Knee 3+/5 Muscle Tone Muscle Tone WNL Yes M6 PT-IP Treatment Start: 08/08/20 12:39 Freq: NEEDED Status: Active Protocol: Document 08/09/20 10:53 CLB (Rec: 08/09/20 11:27 CLB [id number]) Physical Therapy Treatment Exercises Exercises Heel Slides Education Education Provided Precautions,Weight Bearing Status,Safety M7 PT-IP Assessment and Plan Start: 08/08/20 12:39 Freq: NEEDED Status: Active Protocol: Document 02/20/21 10:53 CLB (Rec: 02/20/21 11:27 CLB [id number]) PT Summary Assessment and Plan Potential Rehabilitation Potential Good Status of Condition at Evaluation Evolving Summary Impairments Pain,ROM,Strength,Balance, Coordination,Sensation,Tone, Cognition,Bed Mobility, Transfers,Gait,Activity Tolerance Assessment Summary Pt improving with bed mobility and was able to ambulate ~3ft w/FWW/Mod A x2 to chair. Goals Bed Mobility Goal Standby Assistance Transfer Goal Contact Guard Assistance,Front Wheeled Walker Gait Goal Contact Guard Assistance,Front Wheel Walker Gait Distance 100 Days to Meet Goals 5 Frequency of Treatment Frequency Of Treatment Twice a Day Treatment Plan Physical Therapy Treatment Plan Bed Mobility Training,Transfer Training,Gait Training, Therapeutic Exercise,Balance Retraining,Post Op Education, Discharge Planning,Hot or Cold Pack,Neuromuscular Re-ed, Coordination Retraining,Manual Therapy Other Recommendations and Next Treatment gait, transfers, ther ex. Focus Recommendations To Nursing Amount of Assist Needed 2 Person Assist Discharge Recommendations PT Discharge Recommendations SNF Rehab Transportation Needs at Discharge Wheelchair/Cabulance
--- NOTE | 2020-08-09 11:17 | OT.IP.EVAL ---
Current Diagnoses Essential (primary) hypertension (08/07/20) Peripheral vascular disease, unspecified (08/07/20) Fracture of unspecified part of neck of left femur, initial encounter for closed fracture (08/07/20) Unspecified fall, initial encounter (08/07/20) Unspecified place in unspecified non-institutional (private) residence as the place of occurrence of the external cause (08/07/20) Surgery Performed Operation Date: 08/07/20 15:30 Actual Procedures p Hip Hemiarthroplasty Anastacio(Left) - Vahid Gould MD Past Medical History (Last Reviewed 08/08/20 @ 08:09 by Ivette Luna PA-C) Hypertension Peripheral vascular disease Surgical History (Last Reviewed 08/08/20 @ 08:09 by Ivette Luna PA-C) Hx of tubal ligation Occupational Therapy Inpatient Evaluation/Re-Eval M1 PT/OT-IP Prior Functional Status Start: 08/08/20 12:39 Freq: NEEDED Status: Active Protocol: Document 08/09/20 13:15 CGR (Rec: 08/09/20 13:36 CGR [id number]) Medical Review Prior Functional Status Medical History Reviewed Yes Communication able to make needs known Mobility and Gait pt stated that she is independent with all mobilities and ambulation without AD Activities of Daily Living and IADL's Pt states she was IND in all ADLs Prior Functional Level (Other details) Pt states she lives in a loft apt on her daughters property but plans to stay with her daughter upon discharge from hospital/SNF. Information below is for pt's daughters house. Social History Household Members none Living Arrangements House Number of Floors (Floors) One Floor Number of Stairs To Enter/Railing? 2 steps no rails Home Environment Standard Height Toilet,Walk in Shower,Built-In Shower Seat Home Equipment Front Wheel Walker Employment Status Retired M2 OT-IP Current Condition Start: 08/09/20 13:15 Freq: Status: Active Protocol: Document 08/09/20 13:15 CGR (Rec: 08/09/20 13:36 CGR [id number]) Occupational Therapy Current Condition Current Condition Evaluation Date 08/09/20 Treatment Diagnosis GLF now s/p L posterior anastacio arthroplasty Diagnosis Onset Date 08/07/20 Weight Bearing Status Weight Bearing Status Weight Bear as Tolerated M3 OT- IP Subjective and Pain Start: 08/09/20 13:15 Freq: Status: Active Protocol: Document 08/09/20 13:15 CGR (Rec: 08/09/20 13:36 CGR [id number]) OT- Subjective Occupational Therapy Visit Type Type Initial Evaluation Visit Start Time 10:53 Visit Stop Time 11:17 Total Visit Minutes 24 Notes co-treat with P.T. OT Pain Assessment Pain When Pain Assessed During Mobility Pain Present Pain Present Pain Reported Location Left Hip Intensity 5 Scale Used Numeric (0 - 10) Management Techniques Distraction,Modification of Treatment,Re-positioning M4 OT- IP ADL's Start: 08/09/20 13:15 Freq: Status: Active Protocol: Document 08/09/20 13:15 CGR (Rec: 08/09/20 13:36 CGR [id number]) OT [id number] Comments OT Self-Feeding Comments Not meal time OT ADL-Grooming General Evaluation Grooming Ability Standby Assistance Areas Needing Assistance Retrieving/Set-up of Grooming Items,Combing/Brushing Hair, Face Washing Comments OT Grooming Comments seated in chair OT ADL-Oral Care General Eval Oral Care Ability Standby Assistance Areas of Assistance Brushing Teeth,Retrieving/Set- Up of Items Comments Oral Care Comments seated in chair. OT ADL-Dressing General Eval Upper Body Dressing Ability Standby Assistance Comments OT Dressing Comments hospital gown OT ADL-Toileting Comments OT Toileting Comments not performed OT ADL-Bathing Comments OT Bathing Comments not performed M5 OT- IP IADL's Start: 08/09/20 13:15 Freq: Status: Active Protocol: Document 08/09/20 13:15 CGR (Rec: 08/09/20 13:36 CGR [id number]) OT-Instrumental Activities of Daily Living Deficits IADL Deficits Identified Deficits Home Safety Awareness Awareness of Need for Assistance at Home Decreased Awareness Ability to Problem Solve Emergency Able to Problem Solve Situations Medication Management Medication Management No Deficits Identified Money Management Money Management No Deficits Identified Meal Preparation Meal Preparation Caregiver Provides Assist Mill Crane Operator Mill Crane Operator Caregiver Provides Assist M6 OT- IP Functional Cognition Start: 08/09/20 13:15 Freq: Status: Active Protocol: Document 08/09/20 13:15 CGR (Rec: 08/09/20 13:36 CGR [id number]) Cognitive Factors Limiting Selfcare Function Cognitive Ability Level of Alertness Alert Patient Orientation Name,Age,Birthday,Month,Date, Year,Day of Week,Place, Situation Attention Span Ability Capable of Focused Attention, Capable of Sustained Attention Ability to Follow Commands Able to Follow One Step Commands with Increased Time, Able to Follow One Step Commands with Repetition OT- Vision and Hearing OT- Hearing Assessment OT- Hearing Assessment Hearing Impaired OT- Vision Assessment Visual Acuity Glasses All The Time Visual Attentiveness WFL Occular Pursuits WFL Visual Convergence WFL Vision Assessment Comments Pt wears bifocals and is slow with occular pursuits M7 OT- IP Mobility and Balance Start: 08/09/20 13:15 Freq: Status: Active Protocol: Document 08/09/20 13:15 CGR (Rec: 08/09/20 13:36 CGR [id number]) OT- Bed Mobility Assessment Supine to Sit Supine to Sit Assist Contact Guard Assistance Scooting Scooting to Edge of Bed Maximum Assistance OT-Transfer Assessment Sit to and From Stand Sit to and from Stand Moderate Assistance,2 Person Assistance Transfers Transfer Ability Minimal Assistance,2 Person Assistance Technique Transfer Destination Bed,Chair Transfer Technique Stand Step Pivot Devices Transfer Assistive Devices Gait Belt,Front Wheeled Walker Comments Mobility Comments Pt was able to take steps to the chair with 2 person assist . OT- Balance Assessment Sitting Balance and Reactions Static Sitting Balance Ability Good Dynamic Sitting Balance Ability Fair M8 OT- IP Objective Assessments Start: 08/09/20 13:15 Freq: Status: Active Protocol: Document 08/09/20 13:15 CGR (Rec: 08/09/20 13:36 CGR [id number]) OT Gross Range of Motion Upper Extremity Range of Motion Assessment Within Functional Limits ROM Impairments except B hands, noted swan necking to all fingers OT Strength Upper Extremity Strength Assessment Within Functional Limits Comments Strength Comments grossly 4/5 OT- Coordination Assessment Upper Extremity Finger to Nose Test Within Functional Limits Finger Tapping Test Within Functional Limits OT-Muscle Tone Assessment Muscle Tone WNL Yes OT Sensation Assessment Edema Edema Absent M9 OT- IP Assessment and Plan Start: 08/09/20 13:15 Freq: Status: Active Protocol: Document 08/09/20 13:15 CGR (Rec: 08/09/20 13:36 CGR [id number]) OT Summary Assessment and Plan Potential Rehabilitation Potential Good Analytic Complexity at Evaluation Low Summary OT Impairments Pain,Balance,Functional Mobility,Grooming,Dressing, Toileting,Bathing,Toilet Transfers,Shower Transfers, Activity Tolerance Progress Towards Goals Slow Progress due to Pain,Slow Progress due to Activity Tolerance Assessment Summary Pt presents as a low complexity evaluation s/p admit for GLF with L hip fx requiring L posterior anastacio arthroplasty. Pt is progressing with mobility on this date but needs reminders of proper use of the walker, standing balance, and hip precautions. Recommend d/c to SNF at this time. Goals Grooming Goal Independent Dressing Goal Independent Toileting Goal Independent Bathing Goal Independent Toilet Transfer Goal Independent Shower Transfer Goal Independent Days to Meet Goals 15 Frequency of Treatment Frequency Of Treatment Once a Day Treatment Plan OT Treatment Plan ADL Training,Functional Mobility,Patient/Family Education,Discharge Planning Other Treatment Recommendations and Next ADLs standing, LB dressing Treatment Focus Discharge Recommendations OT Discharge Recommendations SNF Rehab Home Equipment Needs TBD Transportation Needs at Discharge Private Vehicle,Wheelchair/ Cabulance
--- NOTE | 2020-08-09 11:53 | CM.DPC ---
Addendum entered by Adrienne Marinelli LPN 08/09/20 14:25: Spoke by phone with Laurie. She confirms that all needed documents were faxed in with the initial auth request, sent by her yesterday at 1230. She has been tracking progress by way of the insurance portal and can see that it is still pending. She states she has the documentation that has been faxed to them today by this DCPlanner so that if they call to request more info we have it right here. She confirms they have a bed set aside for pt in expectation of admission tomorrow. Addendum entered by Adrienne Marinelli LPN 08/09/20 14:09: Spoke now with Dae and faxed Dr. Jaimes's progress note which indicates pt will be ready for d/c tomorrow. Asked her to please contact Teresa to find out where the authorization stands and she agrees to do so. Teresa will be at the building tomorrow. Pt and her daughter are updated. Addendum entered by Adrienne Marinelli LPN 08/09/20 13:56: OT note is faxed now to Teresa/Dae Original Note: DCP: continued: received vm from Laurie left last evening after CM dept hours. She states that the facility can accept pt when auth is in place and when pt is able to manage off IV pain medications. She reported that the authorization process had been started yesterday and faxed in as per discussion. She needed updated wt and new PT note for today/is now faxed and have updated Ines/allyssa at [facility] today for admissions, that this is being sent.
--- NOTE | 2020-08-09 13:16 | PM.PN.1 ---
Subjective Subjective Date Patient Seen: 08/09/20 Time Patient Seen: 08:45 Interval history: The patient is a 79-year-old female who is status post left hip arthroplasty, with a history of hypertension, history of peripheral vascular disease. Patient is postop day 2. She has better pain control today, slow to progress with PT. Anticipate discharge to SNF tomorrow. Denies chest pain, shortness of breath, nausea, vomiting. Exam Vital Signs (past 8 hours): - 08/09/20 05:59 08/09/20 06:16 08/09/20 07:50 Temperature 98.8 F 98.3 F Pulse Rate 91 H 93 H Respiratory Rate 16 16 Blood Pressure 140/60 138/52 L Pulse Oximetry 91 94 99 08/09/20 10:12 Temperature Pulse Rate Respiratory Rate Blood Pressure Pulse Oximetry 93 Oxygen Delivery Method Room Air Oxygen Flow Rate 0 Narrative Exam Narrative: Gen: Elderly female in no acute distress Lungs: Clear to auscultation Cardiac exam regular rate and rhythm normal S1-S2 Abdomen: Soft and nontender Ext: L hip dressing c/d/i. Objective Labs Result Diagrams: 08/09/20 05:05 08/09/20 05:05 Labs: Laboratory Results - last 24 hr 08/09/20 08/09/20 05:05 05:05 WBC 5.7 D RBC 2.58 L Hgb 7.7 L Hct 22.8 L MCV 88.5 MCH 29.6 MCHC 33.5 RDW 13.8 Plt Count 154 Neut % (Auto) 72.9 D Lymph % (Auto) 10.7 L Adams % (Auto) 9.7 Eos % (Auto) 5.8 H Baso % (Auto) 0.9 Neut # (Auto) 4200 Lymph # (Auto) 600 L Adams # (Auto) 600 Eos # (Auto) 300 Baso # (Auto) 0 Sodium 132 L Potassium 4.4 Chloride 104 Carbon Dioxide 29 BUN 14 Creatinine 0.61 Estimated GFR > 60.0 BUN/Creatinine Ratio 23.0 H Glucose 100 Calcium 8.2 L PFSH Medical History Hypertension Peripheral vascular disease Surgical History Hx of tubal ligation Social History household members: none Smoking Status: Never smoker alcohol intake: current Assessment & Plan Assessment & Plan narrative: 1. Acute left femoral neck fracture, pathologic, now Status post left hip hemiarthroplasty -secondary to ground level fall, likely a result of underlying osteoporosis -continue current pain regimen, this includes Tylenol, Vistaril, Dilaudid, and oxycodone -continue ca and vit d supplementation. 2. Peripheral vascular disease -continue aspirin and Plavix 3. Hypertension -continue atenolol 4. DVT prophylaxis -per ortho Anticipate discharge to detention tomorrow. COVID-19 COVID-19 status: Negative
--- NOTE | 2020-08-09 13:28 | PT.IPTN ---
Current Diagnoses Essential (primary) hypertension (08/07/20) Peripheral vascular disease, unspecified (08/07/20) Fracture of unspecified part of neck of left femur, initial encounter for closed fracture (08/07/20) Unspecified fall, initial encounter (08/07/20) Unspecified place in unspecified non-institutional (private) residence as the place of occurrence of the external cause (08/07/20) Surgery Performed Operation Date: 08/07/20 15:30 Actual Procedures p Hip Hemiarthroplasty Anastacio(Left) - Vaihd Gould MD Physical Therapy Treatment Note M2 PT-IP Current Condition Start: 08/08/20 12:39 Freq: NEEDED Status: Active Protocol: Document 08/08/20 13:00 AB (Rec: 08/08/20 16:02 AB [id number]) Physical Therapy Current Condition Current Condition Evaluation Date 08/08/20 Treatment Diagnosis L femur fx s/p hemiarthoplasty ; difficulty in walking Onset Date 08/07/20 Precautions Posterior Hip Precautions No Hip Flexion > 90 degrees,No Hip Internal Rotation,No Hip Adduction Weight Bearing Status Weight Bearing Status Weight Bear as Tolerated Allowed Weight Bearing Amount (enter % LLE WBAT or #) (%) M3 PT-IP Subjective Start: 08/08/20 12:39 Freq: NEEDED Status: Active Protocol: Document 08/09/20 12:58 CLB (Rec: 08/09/20 15:45 CLB [id number]) Subjective Physical Therapy Visit Type Type Treatment Note Visit Start Time 12:58 Visit Stop Time 13:28 Total Visit Minutes 30 Notes Daughter present for tx. Number of TIRE BUILDING SUPERVISOR Visits 2 Physical Therapy Visit Comments Patient Comments Pt wanting to stay in chair but agreeable to ambulate with chair follow. Therapy Pain Assessment Pain When Pain Assessed During Weight Bearing Pain Present Pain Present Pain Reported Location Left Hip Intensity 5 Pain Management Techniques Modification of Treatment,Re- positioning,Timing of Activity with Medications M4 PT-IP Mobility and Gait Start: 08/08/20 12:39 Freq: NEEDED Status: Active Protocol: Document 08/09/20 12:58 CLB (Rec: 08/09/20 15:45 CLB [id number]) PT-Transfer Assessment Sit to and From Stand Sit to and from Stand Minimal Assistance,1 Person Assistance,Use of Upper Extremities Equipment Transfer Assistive Device Gait Belt,Front Wheeled Walker Orthotic/Prosthetic Devices or Brace: No Transfers Transfer Destination Chair Transfer Ability Level of Assist Minimal Assistance,1 Person Assistance,Use of Upper Extremities Comments Mobility Comments Pt able to recall 2/3 hip precautions. Pt required Min A to scoot forward in chair. Pt stood Min A then ambulated ~ 5ft w/FWW with daughter providing chair follow. Pt required cues for sequencing weight shifting, walker and step sequencing during gait. Pt improved as she took more steps and felt UE fatigue after ~5ft. Pt's daughter Austyn brought chair to pt and pt sat Min A then required Max A x2 to scoot back in chair. Pt performed GS,QS, AP and hip abd in chair. Pt left in reclined chair with wedge on to prevent crossing of legs and IR. All needs within reach and daughter present. Gait Assessment Gait Gait Assistance Required: Minimum Assistance,1 Person Assist Distance (Feet) 5 Able to Maintain Weight Bearing Status Yes During Gait Assistive Devices Assistive Device Gait Belt,Front Wheeled Walker Orthotic/Prosthetic Devices or Brace: No Gait Deviations General Gait Pattern Antalgic,Decreased Stride Length,Decreased Feet Clearance,Step-to Gait Factors Limiting Gait Function Factors Limiting Gait Function Decreased Activity Tolerance, Decreased Strength,Limited Range of Motion,Pain,Poor Balance,Poor Safety Awareness Comments Gait Comments see mobility section M5 PT-IP Objective Assessments Start: 08/08/20 12:39 Freq: NEEDED Status: Active Protocol: Document 08/08/20 13:00 AB (Rec: 08/08/20 16:02 AB [id number]) Orientation Orientation/Cognition Level of Alertness Alert Orientation Name,Place,Situation Language Function Ability Hard of Hearing Safety Awareness Decreased Safety Awareness Memory Description Short Term Impaired Gross Range of Motion Lower Extremity ROM Assessment Within Functional Limits Strength Lower Extremity Strength Assessment Bilaterally Impaired Hip 3+/5 Knee 3+/5 Muscle Tone Muscle Tone WNL Yes M6 PT-IP Treatment Start: 08/08/20 12:39 Freq: NEEDED Status: Active Protocol: Document 08/09/20 12:58 CLB (Rec: 08/09/20 15:45 CLB [id number]) Physical Therapy Treatment Exercises Exercises Ankle Pumps,Gluteal Sets,Quad Sets M7 PT-IP Assessment and Plan Start: 08/08/20 12:39 Freq: NEEDED Status: Active Protocol: Document 08/09/20 12:58 CLB (Rec: 08/09/20 15:45 CLB [id number]) PT Summary Assessment and Plan Potential Rehabilitation Potential Good Status of Condition at Evaluation Evolving Summary Impairments Pain,ROM,Strength,Balance, Coordination,Sensation,Tone, Cognition,Bed Mobility, Transfers,Gait,Activity Tolerance Assessment Summary Pt continues to require Min- Max A for mobility. Pt requires Min A for gait of 5ft with verbal cues for step sequencing and walker management. Pt recalls 2/3 hip precautions. Goals Bed Mobility Goal Standby Assistance Transfer Goal Contact Guard Assistance,Front Wheeled Walker Gait Goal Contact Guard Assistance,Front Wheel Walker Gait Distance 100 Days to Meet Goals 5 Frequency of Treatment Frequency Of Treatment Twice a Day Treatment Plan Physical Therapy Treatment Plan Bed Mobility Training,Transfer Training,Gait Training, Therapeutic Exercise,Balance Retraining,Post Op Education, Discharge Planning,Hot or Cold Pack,Neuromuscular Re-ed, Coordination Retraining,Manual Therapy Other Recommendations and Next Treatment gait, transfers, ther ex. Focus Recommendations To Nursing Amount of Assist Needed 2 Person Assist Discharge Recommendations PT Discharge Recommendations SNF Rehab Transportation Needs at Discharge Wheelchair/Cabulance
[2020-08-09] MEDS: ACETAMINOPHEN 325 MG TABLET 975 MG PO (15:51)
[2020-08-09] MEDS: SODIUM CHLORIDE 0.9% FLUSH 10 ML IV (21:30)
[2020-08-10] VITALS (7 sets, daily range): BP systolic 137–161; BP diastolic 51–71; PULSE 83–105; RESP 16–18; TEMP 36.6–37.5; O2SAT 91–95
[2020-08-10] MEDS: CALCIUM CARBONATE 500 MG TAB 1000 MG PO (10:02)
[2020-08-10] MEDS: ASPIRIN EC 81 MG TABLET PO (10:02)
[2020-08-10] MEDS: atenoloL 50 MG TABLET 25 MG PO (10:02)
[2020-08-10] MEDS: CLOPIDOGREL 75 MG TABLET PO (10:02)
[2020-08-10] MEDS: SODIUM CHLORIDE 0.9% FLUSH 10 ML IV (10:03)
[2020-08-10] MEDS: DOCUSATE 100 MG CAPSULE PO (10:03)
[2020-08-10] MEDS: CHOLECALCIFEROL (VITAMIN D3) 1,000 UNIT TABLET 2000 UNIT PO (10:03)
--- NOTE | 2020-08-10 10:08 | P.DS_ITS ---
History of Present Illness History of Present Illness Date Patient Seen: 08/10/20 Time Patient Seen: 10:09 Chief complaint: GLF Narrative: Per Dr. Gould of orthopedics, Patient is a 79-year-old female who had a ground level fall this morning. The fall does not appear to be with a 2 syncopal episode. She did not strike her head. She did not lose consciousness. After fall she was unable to ambulate but she was able +off of into a chair. Prior to her fall she is not have any history of left hip pain. She is a community ambulator without assistive devices. She lives independently i apartment on her daughter's property. Of note patient has multiple stents in the right lower extremity for peripheral vascular disease. She follows with Dr. Victor at [facility] for peripheral vascular disease. Patient takes Plavix and aspirin for blood thinners. Discharge Providers Provider Date of admission: 08/07/20 10:18 Discharge Date: 08/10/20 Consults: 08/07/20 19:29 Consult to Discharge Planning Routine Comment: Consult to Physical Therapy Evaluate & Treat Comment: Physician Instructions: post op ALLI protocol Consult to Respiratory Therapy Evaluate & Treat Comment: Physician Instructions: Evaluate and treat 08/08/20 12:33 Consult to Occupational Therapy Evaluate & Treat Comment: Physician Instructions: Evaluate and treat Discharge provider: Sivakumar Jaimes DO Summary Hospital Course Discharge Diagnosis: Please see hosptial course by problem list noted below. Hospital Course: 79 F with PMH of PVD and HTN admitted with a pathologic acute left femoral neck fracture. Post-operative course uncomplicated, stable for transfer to SNF today for continued rehabilitation. 1. Acute left femoral neck fracture, pathologic, now Status post left hip hemiarthroplasty -secondary to ground level fall, likely a result of underlying osteoporosis -continue current pain management which includes Tylenol, Vistaril, Dilaudid, and oxycodone -continue ca and vit d supplementation. 2. Peripheral vascular disease -continue aspirin and Plavix 3. Hypertension -continue atenolol 4. Acute blood loss anemia secondary to above surgical procedures. - Hg drop from 12 prior to surgery to 8.1 following. Repeat stable at 7.7. Would recommend repeat evaluation in a few days to confirm stability after surgery. No evidence of active bleeding currently. Patient was on asa BID per orthopedic surgery, will drop to asa daily given she is also on plavix on discharge. Exam Vital Signs (past 8 hours): - 08/10/20 04:45 08/10/20 06:21 08/10/20 07:15 Temperature 97.9 F 98.6 F Pulse Rate 90 105 H Respiratory Rate 16 18 Blood Pressure 161/71 H 152/61 H Pulse Oximetry 95 95 94 Oxygen Delivery Method Room Air Oxygen Flow Rate 0 Narrative Exam Narrative: Gen: Elderly female in no acute distress Lungs: Clear to auscultation Cardiac exam regular rate and rhythm normal S1-S2 Abdomen: Soft and nontender Ext: L hip dressing c/d/i. no ecchymosis. appropriately tender. Objective Labs Result Diagrams: 08/09/20 05:05 08/09/20 05:05 [facility] Medical History Hypertension Peripheral vascular disease Surgical History Hx of tubal ligation Social History household members: none Smoking Status: Never smoker alcohol intake: current Discharge Plan Discharge Plan Patient Disposition: SNF Transfer to: [facility] Provider Discharge Comment: Patient with PMH of PVD and HTN admitted for left femoral neck fracture. Stable for discharge to SNF for continued rehab after surgery. Discharge orders & Medications Prescriptions: New sennosides [senna] 8.6 mg Tablet 17.2 mg PO BEDTIME PRN (Reason: Constipation) 30 Days Qty: 30 RF: 0 acetaminophen 325 mg Tablet 975 mg PO Q8H PRN (Reason: Pain, Mild (1-3)) 25 Days Qty: 60 RF: 0 polyethylene glycol 3350 17 gram Powder In Packet 17 gm PO DAILY PRN (Reason: Constipation) 30 Days Qty: 30 RF: 0 calcium carbonate 200 mg calcium (500 mg) Tablet,Chewable 1,000 mg PO BID 7 Days Qty: 70 RF: 0 docusate sodium [DOK] 100 mg Capsule 100 mg PO BID 14 Days Qty: 28 RF: 0 oxycodone 5 mg Tablet 5 - 10 mg PO Q4H PRN (Reason: Pain, Severe (7-10)) 7 Days Qty: 30 RF: 0 hydroxyzine pamoate 25 mg Capsule 25 mg PO Q4HR PRN (Reason: Nausea) 7 Days Qty: 15 RF: 0 cholecalciferol (vitamin D3) [Vitamin D3] 25 mcg (1,000 unit) Tablet 2,000 unit PO DAILY 30 Days Qty: 30 RF: 0 Continued clopidogrel 75 mg Tablet 75 mg PO DAILY RF: 0 atenolol 50 mg Tablet 25 mg PO DAILY RF: 0 aspirin [Aspirin Low Dose] 81 mg Tablet,Delayed Release (Dr/Ec) 81 mg PO DAILY RF: 0 Discharge Health Status Multidrug resistant organism: No MDRO Precautions: [place] Diet/Activity/Treatments Diet: Diet as Tolerated Liquid consistency: Normal/Thin Food texture: Regular Activity: As tolerated Special Rehabilitation Services Reason for rehabilitation: Post-operative therapy Rehab type: Physical therapy and Occupational therapy
[2020-08-10] MEDS: SENNOSIDES 8.6 MG TABLET 17.2 MG PO (10:14)
[2020-08-10] MEDS: polyethylene glycoL 3350 17 GM POWD.PACK PO (10:15)
--- NOTE | 2020-08-10 11:04 | P.PN_ITS ---
Subjective Subjective Date Patient Seen: 08/10/20 Time Patient Seen: 11:04 Interval history: status post cemented left hemiarthroplasty doing well comfortable in bed. States his mobilized. Planned discharge with primary team today. 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 She has 2 doctors outside hospital for this. she tells me her lesions on her toes are stable and that she has been told if to the get the point that they are all black or pain is uncontrolled amputations may be indicated. Exam Vital Signs (past 8 hours): - 08/10/20 04:45 08/10/20 06:21 08/10/20 07:15 Temperature 97.9 F 98.6 F Pulse Rate 90 105 H Respiratory Rate 16 18 Blood Pressure 161/71 H 152/61 H Pulse Oximetry 95 95 94 08/10/20 10:11 Temperature Pulse Rate Respiratory Rate Blood Pressure Pulse Oximetry 94 Oxygen Delivery Method Room Air Oxygen Flow Rate 0 Narrative Exam Narrative: alert oriented female sitting in bed. Breathing unlabored on room regular rate and rhythm left lower extremity Aquacel in place. Scant drainage. Thigh is soft demonstrates dorsiflexion plantar flexion of the ankle right foot shows peripheral arterial disease with some black eschars the tips of the toes dry skin and arterial ulcer along the medial aspect of the great toe. Objective Labs Result Diagrams: 08/09/20 05:05 08/09/20 05:05 [facility] Medical History Hypertension Peripheral vascular disease Surgical History Hx of tubal ligation Social History household members: none Smoking Status: Never smoker alcohol intake: current Assessment & Plan Post-op Postoperative Procedures: Procedures Operation Date: 08/07/20 15:30 Actual Procedures Side Surgeon p Hip Hemiarthroplasty Anastacio Left Vahid Gould MD Continue posterior hip precautions. DVT prophylaxis.Weight bear as tolerated. Discharge Per primary.
[2020-08-10 11:51] LABS: COVID19 -Nasal RAPID Negative (Negative)
--- NOTE | 2020-08-10 12:21 | PT.IPTN ---
Current Diagnoses Essential (primary) hypertension (08/07/20) Peripheral vascular disease, unspecified (08/07/20) Fracture of unspecified part of neck of left femur, initial encounter for closed fracture (08/07/20) Unspecified fall, initial encounter (08/07/20) Unspecified place in unspecified non-institutional (private) residence as the place of occurrence of the external cause (08/07/20) Surgery Performed Operation Date: 08/07/20 15:30 Actual Procedures p Hip Hemiarthroplasty Anastacio(Left) - Vahid Gould MD Physical Therapy Treatment Note M2 PT-IP Current Condition Start: 08/08/20 12:39 Freq: NEEDED Status: Active Protocol: Document 08/08/20 13:00 AB (Rec: 08/08/20 16:02 AB [id number]) Physical Therapy Current Condition Current Condition Evaluation Date 08/08/20 Treatment Diagnosis L femur fx s/p hemiarthoplasty ; difficulty in walking Onset Date 08/07/20 Precautions Posterior Hip Precautions No Hip Flexion > 90 degrees,No Hip Internal Rotation,No Hip Adduction Weight Bearing Status Weight Bearing Status Weight Bear as Tolerated Allowed Weight Bearing Amount (enter % LLE WBAT or #) (%) M3 PT-IP Subjective Start: 08/08/20 12:39 Freq: NEEDED Status: Active Protocol: Document 08/10/20 12:07 AW (Rec: 08/10/20 12:21 AW [id number]) Subjective Physical Therapy Visit Type Type Treatment Note Visit Start Time 11:57 Visit Stop Time 12:07 Total Visit Minutes 10 Notes Daughter present for tx. Number of MACHINE RIGGER Visits 0 Physical Therapy Visit Comments Patient Comments Pt wants to conserve her energy for transfer to SNF today Therapy Pain Assessment Pain When Pain Assessed During Mobility Pain Present Pain Present Denied Pain M4 PT-IP Mobility and Gait Start: 08/08/20 12:39 Freq: NEEDED Status: Active Protocol: Document 08/10/20 12:07 AW (Rec: 08/10/20 12:21 AW [id number]) PT-Transfer Assessment Sit to and From Stand Sit to and from Stand Minimal Assistance,1 Person Assistance,Use of Upper Extremities Equipment Transfer Assistive Device Gait Belt,Front Wheeled Walker Orthotic/Prosthetic Devices or Brace: No Transfers Transfer Destination Chair Transfer Technique Stand Step Pivot Transfer Ability Level of Assist Minimal Assistance,2 Person Assistance Comments Mobility Comments Pt able to recall 2/3 hip precautions. She was seated on the BSC and needed assist to scoot forward and cues for sequencing/min assist to stand and transfer to the bedside chair. Pt then agreed to practice sit to stand, completing 3 reps with min to mod assist. Pt was positioned on the chair with call light and all needs in reach. Gait Assessment Gait Gait Assistance Required: Minimum Assistance,1 Person Assist Distance (Feet) 3 Able to Maintain Weight Bearing Status Yes During Gait Assistive Devices Assistive Device Gait Belt,Front Wheeled Walker Orthotic/Prosthetic Devices or Brace: No Gait Deviations General Gait Pattern Antalgic,Decreased Stride Length,Decreased Feet Clearance,Step-to Gait Factors Limiting Gait Function Factors Limiting Gait Function Decreased Activity Tolerance, Decreased Strength,Limited Range of Motion,Pain,Poor Balance,Poor Safety Awareness Comments Gait Comments transfer only. See mobility comments M5 PT-IP Objective Assessments Start: 08/08/20 12:39 Freq: NEEDED Status: Active Protocol: Document 08/08/20 13:00 AB (Rec: 08/08/20 16:02 AB [id number]) Orientation Orientation/Cognition Level of Alertness Alert Orientation Name,Place,Situation Language Function Ability Hard of Hearing Safety Awareness Decreased Safety Awareness Memory Description Short Term Impaired Gross Range of Motion Lower Extremity ROM Assessment Within Functional Limits Strength Lower Extremity Strength Assessment Bilaterally Impaired Hip 3+/5 Knee 3+/5 Muscle Tone Muscle Tone WNL Yes M6 PT-IP Treatment Start: 08/08/20 12:39 Freq: NEEDED Status: Active Protocol: Document 08/10/20 12:07 AW (Rec: 08/10/20 12:21 AW [id number]) Physical Therapy Treatment Exercises Exercises Ankle Pumps,Quad Sets,Seated Knee Flexion/Extension Education Education Provided Precautions,Weight Bearing Status,Safety M7 PT-IP Assessment and Plan Start: 08/08/20 12:39 Freq: NEEDED Status: Active Protocol: Document 08/10/20 12:07 AW (Rec: 08/10/20 12:21 AW [id number]) PT Summary Assessment and Plan Potential Rehabilitation Potential Good Status of Condition at Evaluation Evolving Summary Impairments Pain,ROM,Strength,Balance, Coordination,Sensation,Tone, Cognition,Bed Mobility, Transfers,Gait,Activity Tolerance Assessment Summary Pt required min to mod assist for mobility. She requested limited treatment this AM in order to conserve energy for transfer to SNF. Goals Bed Mobility Goal Standby Assistance Transfer Goal Contact Guard Assistance,Front Wheeled Walker Gait Goal Contact Guard Assistance,Front Wheel Walker Gait Distance 100 Days to Meet Goals 5 Frequency of Treatment Frequency Of Treatment Twice a Day Treatment Plan Physical Therapy Treatment Plan Bed Mobility Training,Transfer Training,Gait Training, Therapeutic Exercise,Balance Retraining,Post Op Education, Discharge Planning,Hot or Cold Pack,Neuromuscular Re-ed, Coordination Retraining,Manual Therapy Recommendations To Nursing Amount of Assist Needed 2 Person Assist Discharge Recommendations PT Discharge Recommendations SNF Rehab Transportation Needs at Discharge Wheelchair/Cabulance
--- NOTE | 2020-08-10 12:23 | CM.DPC ---
dcp:continued: received call from Ines/[facility] this morning with report that the authorization from [employer]/Med[employer]are ([facility]) had been received. All is now set for pt to d/c to [facility] with slat pickler by w/c van at 1300. Rapid Covid - test obtained. PASRR completed. DC summary and snf specific orders are in and all has been faxed to [facility]. Pt and her daughter state they are pleased to have this all set up for today. Daughter Austyn has discussed some specifics of the snf stay with [facility] and they are just waiting now for the van to arrive. DEEPTHI Serra has been updated.
--- NOTE | 2020-08-10 13:02 | PC.NURSE ---
Day shift: Pt off unit and on her way to SNF at approx 1300. D/c packet is w/ transport person. Aquacel remains CDI. Pt ambulating well w/ minimal pain. No nausea. Pt voiding well. No c/o constipation. Pt took extra stool softener meds this AM. CMS ok. PPP. VS ok and RA 97%. Using her I.S.. Pt's daughter is taking her personal belongings. Taken to SNF transport vehicle by the SNF transport person in a WC.
--- NOTE | 2020-08-10 13:31 | PC.NURSE ---
Day shift: Report given to Nelson LACEY at [facility] via phone at approx 1330. All questions answered.
== END 2020-08-10 13:07 | DRG 522 ==
LOC: ED 10:10 → AC 10:21
PROVIDERS: Hospitalist; Internal Medicine; Orthopaedic Surgery Adult Reconstructive Orthopaedic Surgery; Admitting Provider Internal Medicine; Emergency Provider Emergency Medicine; Referring Provider Emergency Medicine; Visit Provider Internal Medicine
PROC: 0SRS0JZ Replacement of Left Hip Joint, Femoral Surface with Synthetic Substitute, Open Approach (ICD-10-PCS; CPT 27125; principal; 2020-08-07 15:30)
DX: M80.052A Age-related osteoporosis with current pathological fracture, left femur, initial encounter for fracture (principal); D62 Acute posthemorrhagic anemia; I10 Essential (primary) hypertension; I73.9 Peripheral vascular disease, unspecified; G89.18 Other acute postprocedural pain; W18.30XA Fall on same level, unspecified, initial encounter; Y92.002 Bathroom of unspecified non-institutional (private) residence as the place of occurrence of the external cause; Z20.822 Contact with and (suspected) exposure to COVID-19; Z79.01 Long term (current) use of anticoagulants; Z79.82 Long term (current) use of aspirin
CPT/HCPCS: 36415; 71045; 72170; 73502; 80048; 80053; 82550; 84484; 85014; 85018; 85025; 85610; 86850; 86900; 86901; 87635; 93005; 93010; 96374; 96375; 97110; 97116; 97162; 97165; 97530; 97535; 99283; 99284; C1776; C9803; J0330; J0690; J1100; J1170; J2270; J2405; J2704; J3010

== ENCOUNTER 2024-03-02 08:14 | Inpatient (IN) | payer MEDICARE, SELFPAY ==
[2020-08-07 11:12] VITALS: BMI 22.1
[2024-03-02] VITALS (71 sets, daily range): BP systolic 105–175; BP diastolic 53–109; PULSE 66–133; RESP 12–45; TEMP 31–35.9; O2SAT 91–100; BMI 23.8
--- NOTE | 2024-03-02 08:14 | DI.RAD.S_ITS ---
PROCEDURE: XR CHEST 1V INDICATIONS: sob TECHNIQUE: One view of the chest was acquired. COMPARISON: [facility], CR, XR CHEST 1V, 08/07/2020, 8:57. FINDINGS: New mild bilateral pleural effusions left greater than right. New moderate bilateral diffuse peribronchial thickening with patchy alveolar and interstitial opacities, suspicious for bronchitis, bronchopneumonia, viral infection or other process. Follow-up suggested. New mildly prominent huan, pulmonary vascular congestion. Moderate calcifications of the aortic arch and descending aorta unchanged. Moderate degenerative changes of the thoracic spine and shoulders unchanged. No pneumothorax. Cardiopericardial silhouette within normal limits in size. Previously noted approximately 1 cm nodular density in the right lower lobe is again noted unchanged. Artifacts from cardiac leads, lines, tubes and other extrinsic artifacts partially limit radiographic detail IMPRESSION: New mild bilateral pleural effusions. New moderate bilateral diffuse peribronchial thickening with patchy alveolar and interstitial opacities, suspicious for bronchitis, bronchopneumonia, viral infection or other process. Follow-up suggested. New pulmonary vascular congestion. Previously noted approximately 1 cm nodular density in the right lower lobe unchanged. If indicated, CT chest could be performed for further evaluation. Dictated by: Vahid Ordoñez M.D. on 03/02/2024 at 8:57 Approved by: Vahid Ordoñez M.D. on 03/02/2024 at 9:04
--- NOTE | 2024-03-02 08:19 | ED_ITS ---
HPI - SOB/Dyspnea General Chief Complaint: Shortness of Breath/Dyspnea Stated Complaint: SOB Time Seen by Provider: 03/02/24 08:19 Source: EMS Mode of arrival: EMS Limitations: no limitations History of Present Illness HPI Narrative: Patient is a 83-year-old female history of peripheral vascular disease hypertension presenting today with sudden onset shortness of breath. She does report that she was having some shortness of breath yesterday however this morning she was acutely short of breath. EMS reports hypoxia in the mid 80s with agitation. She was put on a non-rebreather nasal cannula and given a DuoNeb treatment. EMS reports that the DuoNeb made her actually worse. She had significant can not conversational dyspnea upon arrival placed on BiPAP when she arrived to the ED. currently denying fever or chest pain Related Data Home Medications Medication Instructions Recorded Confirmed atenolol 50 mg tablet 25 mg PO DAILY 08/07/20 03/02/24 clopidogrel 75 mg tablet 75 mg PO DAILY 08/07/20 03/02/24 methotrexate sodium 2.5 mg tablet 15 mg PO WEEKLY 03/02/24 03/02/24 Allergies Allergy/AdvReac Type Severity Reaction Status Date / Time Penicillins Allergy Mild Rash Verified 08/07/20 08:59 Patient History Medical History Hypertension Peripheral vascular disease Surgical History Hx of tubal ligation Social History household members: none Smoking Status: Never smoker alcohol intake: current Smoking Status: Never smoker alcohol intake frequency: holidays/special occasions only Substance Use Type: does not use Exam Initial Vital Signs Initial Vital Signs: Vital Signs Pulse Rate 133 H 03/02/24 08:14 Respiratory Rate 45 H 03/02/24 08:14 Blood Pressure 175/109 H 03/02/24 08:14 Pulse Oximetry 96 03/02/24 08:14 Oxygen Delivery Method Nasal Cannula, Non -Rebreather 03/02/24 08:14 GENERAL: Alert 83-year-old female appears in moderate to severe respiratory distress HEENT: Head atraumatic,EOMI, pupils reactive, face symmetric, moist mucous membranes CARDIOVASCULAR: Regular rate and rhythm without murmurs, rubs or gallops. RESPIRATORY: Coarse breath sounds bilaterally ABDOMEN: Soft, nontender. Normoactive bowel sounds all 4 quadrants. No guarding or rebound. EXTREMITIES: Normal range of motion, no clubbing or edema. Neurovascularly intact NEUROLOGICAL: Alert and oriented x4.Normal gait and speech. Cranial nerves II through XII grossly intact. SKIN: Warm, dry, no laceration, no petechiae, no rashes or lesions. Course Orders Ordered: ED Orders 03/02/24 10:17 Trop I [Troponin I] Stat Acetaminophen (Acetaminophen 325 Mg Tablet) 650 mg PO Q6H PRN PRN Reason: Fever/Mild Pain (1-3) Al Hydrox/Mg Hydrox/Simethicone (Mag Hydrox/Alum/Simeth 30 Ml Udc) 30 ml PO Q6HR PRN PRN Reason: Dyspepsia Aspirin (Aspirin Ec 81 Mg Tablet) 81 mg PO DAILY ARTUR Last Admin: 03/02/24 17:12 Dose: 81 mg Documented By: BELIA Atorvastatin Calcium (Atorvastatin 20 Mg Tablet) 40 mg PO BEDTIME ARTUR Furosemide (Furosemide 40 Mg/4 Ml Vial) 40 mg IV Q12H ARTUR Heparin Sodium/Dextrose (Heparin Drip) 25,000 unit in 500 mls @ 14.174 mls/hr IV CONT ARTUR; Protocol Last Admin: 03/02/24 17:09 Dose: 12 units/kg/hr, 14.174 mls/hr Documented By: BELIA Co-signed By: GILBERTO Naloxone HCl (Naloxone 0.4 Mg/Ml Vial) 0.2 mg IV Q2MIN PRN PRN Reason: Opiate Reversal Ondansetron HCl (Ondansetron 4 Mg Odt) 4 mg PO Q8HR PRN PRN Reason: Nausea And Vomiting Discontinued Medications Furosemide (Furosemide 40 Mg/4 Ml Vial) 40 mg IV NOW ONE Stop: 03/02/24 08:17 Last Admin: 03/02/24 08:21 Dose: 40 mg Documented By: HOLLAND Heparin Sodium (Porcine) (Heparin 5,000 Unit/Ml Vial) 3,500 unit 60 unit/kg (3500 unit) IV NOW ONE Stop: 03/02/24 16:29 Last Admin: 03/02/24 17:11 Dose: 3,500 unit Documented By: BELIA Ceftriaxone Sodium 2,000 mg/ (Sodium Chloride) 100 mls @ 200 mls/hr IV NOW ONE Stop: 03/02/24 08:57 Last Infusion: 03/02/24 10:00 Dose: Infused Documented By: Admin: 03/02/24 09:20 Dose: 200 mls/hr Documented By: ADRIEL Azithromycin 500 mg/ Dextrose 250 mls @ 250 mls/hr IV NOW ONE Stop: 03/02/24 08:57 Last Infusion: 03/02/24 11:33 Dose: Infused Documented By: Admin: 03/02/24 10:26 Dose: 250 mls/hr Documented By: ADRIEL Nitroglycerin (Nitroglycerin 0.4 Mg Sl Tab) 0.4 mg SL NOW ONE Stop: 03/02/24 08:17 Last Admin: 03/02/24 08:22 Dose: 0.4 mg Documented By: HOLLAND Vital Signs Vital signs: Vital Signs - 8 hr 03/02/24 10:35 03/02/24 10:35 03/02/24 10:40 Pulse Rate 69 Respiratory Rate 20 Blood Pressure 116/58 L 117/58 L Pulse Oximetry 99 Oxygen Delivery Method BiPAP 03/02/24 10:40 03/02/24 10:45 03/02/24 10:45 Pulse Rate 68 70 Respiratory Rate 20 22 Blood Pressure 132/62 Pulse Oximetry 100 100 Oxygen Delivery Method BiPAP 03/02/24 10:50 03/02/24 10:50 03/02/24 10:55 Pulse Rate 70 Respiratory Rate 22 Blood Pressure 132/63 126/60 Pulse Oximetry 99 Oxygen Delivery Method 03/02/24 10:55 03/02/24 11:00 03/02/24 11:00 Pulse Rate 80 74 Respiratory Rate 20 20 Blood Pressure 120/56 L Pulse Oximetry 100 100 Oxygen Delivery Method 03/02/24 11:05 03/02/24 11:05 03/02/24 11:10 Pulse Rate 72 77 Respiratory Rate 20 22 Blood Pressure 118/56 L Pulse Oximetry 100 100 Oxygen Delivery Method BiPAP 03/02/24 11:10 03/02/24 11:15 03/02/24 11:15 Pulse Rate 72 Respiratory Rate 18 Blood Pressure 126/60 120/56 L Pulse Oximetry 99 Oxygen Delivery Method 03/02/24 11:20 03/02/24 11:20 03/02/24 11:25 Pulse Rate 80 Respiratory Rate 29 H Blood Pressure 124/58 L 117/55 L Pulse Oximetry 98 Oxygen Delivery Method BiPAP 03/02/24 11:25 03/02/24 11:45 03/02/24 11:50 Pulse Rate 74 72 68 Respiratory Rate 26 H 39 H 32 H Blood Pressure Pulse Oximetry 100 100 100 Oxygen Delivery Method 03/02/24 11:50 03/02/24 11:55 03/02/24 11:55 Pulse Rate 66 Respiratory Rate 28 H Blood Pressure 133/70 124/62 Pulse Oximetry 100 Oxygen Delivery Method 03/02/24 12:00 03/02/24 12:00 03/02/24 12:05 Pulse Rate 78 Respiratory Rate 24 Blood Pressure 128/59 L 139/64 Pulse Oximetry 99 Oxygen Delivery Method 03/02/24 12:05 Pulse Rate 75 Respiratory Rate 24 Blood Pressure Pulse Oximetry 100 Oxygen Delivery Method MDM - SOB/Dyspnea Lab Data 03/02/24 08:15 03/02/24 08:15 Labs: Lab Results 03/02/24 03/02/24 03/02/24 Range/Units 08:15 09:00 10:17 WBC 10.5 (4.5-11.0) X10^3/uL RBC 4.55 (4.0-5.2) X10^6/uL Hgb 14.2 (12.0-16.0) g/dL Hct 42.5 (36-46) % MCV 93.6 (80-100) fL MCH 31.2 (26-34) PG MCHC 33.3 (30-36) % RDW 15.3 H (11.6-14.8) % Plt Count 353 (150-400) X10^3/uL Neut % (Auto) 53.6 (50-75) % Lymph % (Auto) 30.1 (25-40) % [place] % (Auto) 11.1 (3-14) % Eos % (Auto) 4.4 H (2-4) % Baso % (Auto) 0.8 (0-2) % Neut # (Auto) 5600 (6894-0001) /uL Lymph # (Auto) 3100 (1669-6962) /uL [place] # (Auto) 1200 H (0-900) /uL Eos # (Auto) 500 H (0-450) /uL Baso # (Auto) 100 (0-100) /uL PT 11.7 (9.4-12.5) SECONDS INR 1.0 (0.9-1.3) APTT 29 (25.1-36.5) SECONDS Sodium 133 L (137-145) mmol/L Potassium 3.9 (3.4-5.1) mmol/L Chloride 102 (98-107) mmol/L Carbon Dioxide 23 (22-32) mmol/L BUN 17 (7-17) mg/dL Creatinine 0.72 (0.52-1.04) mg/dL Estimated GFR > 60 (>60) mL/min BUN/Creatinine Ratio 23.6 H (6-22) Glucose 141 H (80-110) mg/dL Lactate 2.8 H 2.3 H (0.7-2.1) mmol/L Calcium 9.3 (8.4-10.2) mg/dL Total Bilirubin 0.6 (0.2-1.3) mg/dL AST 65 H (14-36) IU/L ALT 46 H (<35) IU/L Alkaline Phosphatase 129 H (38-126) U/L Total Creatine Kinase 45 (30-135) U/L Troponin I 0.049 H 0.172 H* (0.01-0.034) ng/mL NT-Pro-B Natriuret Pep 6030 H (<450) pg/mL Total Protein 7.3 (6.3-8.2) g/dL Albumin 4.0 (3.5-5.0) g/dL Globulin 3.3 (1.7-4.1) g/dL Albumin/Globulin Ratio 1.2 (1.0-2.8) Procalcitonin 0.038 (<0.5) ng/mL Urine Color Yellow Urine Appearance Clear Urine pH 5.5 (4.5-8.0) Ur Specific [place] 1.010 (1.000-1.035) Urine Protein Negative (Negative) Urine Glucose (UA) Negative (Negative) g/dL Urine Ketones Negative (NEGATIVE) Urine Occult Blood Negative (Negative) Urine Nitrate Negative (Negative) Urine Bilirubin Negative (NEGATIVE) Urine Urobilinogen 0.2 (0.2) E.U./dL Ur Leukocyte Esterase Negative (NEGATIVE) Urine RBC None seen (0-5/HPF) Urine WBC None seen (0-5/HPF) Ur Squamous Epith Cells None seen (0-5/HPF) Urine Bacteria None seen (None) Ur Culture Indicated? Cult not indicated Vol Urine Centrifuged 10ml (spun) Chlamy pneumoniae PCR Not detected (Not Detect) Adenovirus (PCR) Not detected (Not Detect) B.parapertussis DNA PCR Not detected (Not Detecte) Coronavirus OC43 (PCR) Not detected (Not Detect) Coronavirus HKU1 (PCR) Not detected (Not Detect) Coronavirus 229E (PCR) Not detected (Not Detect) SARS-CoV-2 (PCR) Not detected (Not Detecte) Coronavirus NL63 (PCR) Not detected (Not Detect) Human Metapneumovir PCR Not detected (Not Detect) Influenza Type A (PCR) Not detected (Not Detect) Influenza Type B (PCR) Not detected (Not Detect) M. pneumoniae (PCR) Not detected (Not Detect) Parainfluenza 1 (PCR) Not detected (Not Detect) Parainfluenza 2 (PCR) Not detected (Not Detect) Parainfluenza 3 (PCR) Not detected (Not Detect) Parainfluenza 4 (PCR) Not detected (Not Detect) RSV (PCR) Not detected (Not Detect) Entero/Rhino (PCR) Not detected (Not Detect) Imaging Data Chest x-ray: Radiologist's Impression: PROCEDURE: XR CHEST 1V INDICATIONS: sob TECHNIQUE: One view of the chest was acquired. COMPARISON: [facility], , XR CHEST 1V, 08/07/2020, 8:57. FINDINGS: New mild bilateral pleural effusions left greater than right. New moderate bilateral diffuse peribronchial thickening with patchy alveolar and interstitial opacities, suspicious for bronchitis, bronchopneumonia, viral infection or other process. Follow-up suggested. New mildly prominent huan, pulmonary vascular congestion. Moderate calcifications of the aortic arch and descending aorta unchanged. Moderate degenerative changes of the thoracic spine and shoulders unchanged. No pneumothorax. Cardiopericardial silhouette within normal limits in size. Previously noted approximately 1 cm nodular density in the right lower lobe is again noted unchanged. Artifacts from cardiac leads, lines, tubes and other extrinsic artifacts partially limit radiographic detail IMPRESSION: New mild bilateral pleural effusions. New moderate bilateral diffuse peribronchial thickening with patchy alveolar and interstitial opacities, suspicious for bronchitis, bronchopneumonia, viral infection or other process. Follow-up suggested. New pulmonary vascular congestion. Previously noted approximately 1 cm nodular density in the right lower lobe unchanged. If indicated, CT chest could be performed for further evaluation. Dictated by: Vahid Ordoñez M.D. on 03/02/2024 at 8:5 ECG Data Attestation: I personally reviewed and interpreted this ECG as follows: Prior ECG tracings: available for review Interpretation: Sinus rhythm rate 76 MO interval 124 QRS [address] depression noted in V4 V5 and V6 without acute ST elevation MDM Narrative Medical decision making narrative: MDM CC: Shortness of breath Complicating co-morbidities: Hypertension peripheral vascular disease Data collected from: Daughter, who reports that she has a dry nonproductive cough chronically she was with her all day yesterday without significant issue Medical records reviewed: Yes Differential considered: CHF pneumonia COPD viral illness pulmonary embolism Exam documented above, pertinent findings include: Significant respiratory distress coarse breath sounds bilaterally Lab Test results independently reviewed as above. Pertinent findings: Lactate 2.8 repeat 2.3, troponin 0.049 with repeat 0.17, BNP 6030 Independently reviewed EKG as above ST depressions without acute ST elevation somewhat more pronounced from prior EKG in 2020 Imaging studies independently reviewed: Vascular congestion, peribronchial thickening with patchy alveolar interstitial opacities Consultations: Dr. Castellano accepts patient Treatments: BiPAP Lasix nitro, Rocephin and azithromycin Re-evaluations: Patient placed on BiPAP given nitro and Lasix. Breathing actually improved pretty immediately with BiPAP and breath sounds were suddenly clear. He appeared more comfortable as. Discussion: Patient 83-year-old female presents with sudden onset shortness of breath and in acute respiratory distress upon arrival. She was immediately placed on BiPAP given nitro and Lasix. She actually had significant urine output and breath sounds improved quite quickly. Chest x-ray does show vascular congestion she has an elevated BNP this is most consistent with pulmonary edema. I have low suspicion for pulmonary embolism was considered. She remained on BiPAP was pretty quickly weaned off and onto a nasal cannula. Breath sounds were clear in a short time. He does have a rising troponin but this is thought to be secondary to demand ischemia. She had elevated lactic acid empirically covered for pneumonia however I suspect lactic acid is secondary to hypoxia rather than sepsis. She was not a candidate for sepsis fluids secondary to acute respiratory distress and need for diuresis. Critical Care Time Critical Care Time Critical Care Time: Yes Total Critical Care Time: 45 Attestation: The high probability of a clinically significant, sudden or life threatening deterioration of the [cardiovascular] system(s) required my full and direct attention, intervention and personal management. The aggregate critical care time was [45] minutes. This time is in addition to time spent performing reported procedures but includes the following: [x] Data Review and interpretation [x] Patient assessment and monitoring of vital signs [x] Documentation [x] Medication orders and management Discharge Plan Departure Patient Disposition: Admitted As Inpatient Clinical Impression: Congestive heart failure Admit Date/Time: 03/02/24 12:08 Admit Provider: Yonas Castellano
[2024-03-02] MEDS: FUROSEMIDE 40 MG/4 ML VIAL IV ×2 (08:21→20:42)
[2024-03-02] MEDS: NITROGLYCERIN 0.4 MG SL TAB SL (08:22)
[2024-03-02 08:25] LABS: Add Manual Diff / Slide Review NO; Basophils Absolute Auto 100 /uL (0-100); Basophils Percent Auto 0.8 % (0-2); Eosinophils Absolute Auto 500 /uL (0-450); Eosinophils Percent Auto 4.4 % (2-4); Hematocrit 42.5 % (36-46); Hemoglobin 14.2 g/dL (12.0-16.0); Lymphocytes Absolute Auto 3100 /uL (1100-4500); Lymphocytes Percent Auto 30.1 % (25-40); Mean Corpuscular HGB Conc 33.3 % (30-36); Mean Corpuscular Hemoglobin 31.2 PG (26-34); Mean Corpuscular Volume 93.6 fL (80-100); Monocytes Absolute Auto 1200 /uL (0-900); Monocytes Percent Auto 11.1 % (3-14); Neutrophils Absolute Auto 5600 /uL (1500-7000); Neutrophils Percent Auto 53.6 % (50-75); Platelet Count 353 X10^3/uL (150-400); Red Blood Cell Count 4.55 X10^6/uL (4.0-5.2); Red Cell Distribution Width 15.3 % (11.6-14.8); White Blood Cell Count 10.5 X10^3/uL (4.5-11.0)
[2024-03-02 08:31] LABS: Prothrombin Time 11.7 SECONDS (9.4-12.5)
[2024-03-02 08:37] LABS: Lactate (Lactic Acid) 2.8 mmol/L (0.7-2.1)
[2024-03-02 08:38] LABS: Alanine Aminotransferase 46 IU/L (<35); Albumin Globulin Ratio 1.2 (1.0-2.8); Alkaline Phosphatase 129 U/L (38-126); Aspartate Aminotransferase 65 IU/L (14-36); BUN Creatinine Ratio 23.6 (6-22); Bilirubin Total 0.6 mg/dL (0.2-1.3); Blood Urea Nitrogen 17 mg/dL (7-17); Calcium 9.3 mg/dL (8.4-10.2); Carbon Dioxide 23 mmol/L (22-32); Chloride 102 mmol/L (98-107); Creatine Kinase 45 U/L (30-135); Estimated Glomerular Filt Rate > 60 mL/min (>60); Globulin 3.3 g/dL (1.7-4.1); Glucose 141 mg/dL (80-110); HEMOLYSIS 20 (0-50); Potassium 3.9 mmol/L (3.4-5.1); Sodium 133 mmol/L (137-145); Total Protein 7.3 g/dL (6.3-8.2)
[2024-03-02 08:39] LABS: PTT Partial Thromboplastin Tim 29 SECONDS (25.1-36.5)
--- NOTE | 2024-03-02 08:46 | EKG_ITS ---
[place] [id number] [place] [id number] Test Date: 2024-03-02 Pat Name: Wendy Calhoun Department: [facility] Room: Gender: Female [employer] Att[employer]: ESTHER : 1940 Requested By: Order Number: [id number] Reading MD: Yonas Castellano Measurements Intervals [place] Rate: 92 P: 57 WI: 128 QRS: 79 QRSD: 88 T: 162 QT: 386 QTc: 477 Interpretive Statements Normal sinus rhythm Possible Left atrial enlargement Marked ST abnormality, possible lateral subendocardial injury Electronically Signed On 03-02-2024 18:01:28 PDT by Yonas Castellano
[2024-03-02 08:50] LABS: NT-proBNP (BNP-Adult 18+) 6030 pg/mL (<450); Troponin I 0.049 ng/mL (0.01-0.034)
[2024-03-02 08:55] LABS: Procalcitonin 0.038 ng/mL (<0.5)
[2024-03-02 09:12] LABS: Adenovirus Not Detected (Not Detect); B. parapertussis Not Detected (Not Detecte); Bordetella pertussis Not Detected (Not Detect); Chlamydophila pneumoniae Not Detected (Not Detect); Coronavirus 229E Not Detected (Not Detect); Coronavirus HKU1 Not Detected (Not Detect); Coronavirus NL 63 Not Detected (Not Detect); Coronavirus OC43 Not Detected (Not Detect); Human Metapneumovirus Not Detected (Not Detect); Human Rhinovirus/Enterovirus Not Detected (Not Detect); Influenza A Not Detected (Not Detect); Influenza B Not Detected (Not Detect); Mycoplasma pneumoniae Not Detected (Not Detect); Parainfluenza Virus 1 Not Detected (Not Detect); Parainfluenza Virus 2 Not Detected (Not Detect); Parainfluenza Virus 3 Not Detected (Not Detect); Parainfluenza Virus 4 Not Detected (Not Detect); Respiratory Syncytial Virus Not Detected (Not Detect); SARS- CoV-2 Not Detected (Not Detecte)
[2024-03-02] MEDS: cefTRIAXone 2,000 MG in SODIUM CHLORIDE 0.9% 100 ML 200 MG IV (09:20)
[2024-03-02 09:37] LABS: Appearance Urine UA CLEAR; Bilirubin Urine UA NEGATIVE (NEGATIVE); Color Urine UA YELLOW; Glucose Urine UA NEGATIVE (Negative); Ketones Urine UA NEGATIVE (NEGATIVE); Leukocyte Esterase Urine UA NEGATIVE (NEGATIVE); Nitrite Urine UA NEGATIVE (Negative); Occult Blood Urine UA NEGATIVE (Negative); Protein Urine UA NEGATIVE (Negative); Urobilinogen Urine UA 0.2 E.U./dL (0.2)
[2024-03-02 09:38] LABS: Urine Volume 10mL (spun); pH Urine UA 5.5 (4.5-8.0)
[2024-03-02 09:43] LABS: Bacteria Urine None Seen; Culture Indicated Urine Cult Not Indicated; RBC Urine None Seen (0-5/HPF); Squamous Epithelial Cell Urine None Seen (0-5/HPF); WBC Urine None Seen (0-5/HPF)
[2024-03-02 09:57] LABS: Reflexed Lactate in 2 Hours Y
[2024-03-02] MEDS: AZITHROMYCIN 500 MG in DEXTROSE 5% IN WATER 250 ML 250 MG IV (10:26)
[2024-03-02 10:34] LABS: Lactate 2HR (Lactic Acid Rflx) 2.3 mmol/L (0.7-2.1)
[2024-03-02 10:54] LABS: Troponin I 0.172 ng/mL (0.01-0.034)
--- NOTE | 2024-03-02 11:20 | EKG_ITS ---
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
--- NOTE | 2024-03-02 14:46 | DI.ECHO.S_ITS ---
[place] [facility] : : [id number] : : [place] [place] : : [id number] : : Phone: [phone] Echocardiogram Report + + :Name: PHIL MARKHAM Study Date: 03/03/2024 Height: 62 in : :[facility] ReadingLocation: Weight: 130 lb : : Gender: Female BSA: 1.6 m2 : :: 1940 Age: 83 yrs BP: 134/56 mmHg: :Reason For Study: CONGESTIVE HEART FAILURE : :Ordering Physician: MIRLANDE, : :VICKEY Oneil Performed By: Ewelina Ravi : :Referring: VICKEY NOGUEIRA : + + Interpretation Summary 1) Normal left ventricular size and thickness with low normal systolic function (EF 50-55%). 2) Basal to mid inferolateral wall, basal anterolateral wall, and basal anterior wall are severely hypokinetic to akinetic. 3) Normal right ventricular size with low normal function. 4) There is moderate mitral regurgitation. 5) There is moderate tricuspid regurgitation. 6) The right ventricular systolic pressure is estimated to be at least 47 mmHg based on an estimated right atrial pressure of 3 mm Hg. 7) There is a moderate left-sided pleural effusion. 8) Compared to the Echo done 08/25/2017, wall motion abnormalities described above are new on this study. Procedure: A two-dimensional transthoracic echocardiogram with color flow and Doppler was performed. The study quality was technically adequate. Comparison is made with the echocardiogram of 08/25/2017. The patient was in sinus rhythm with heart rates between 78-94 bpm during the exam. Left Ventricle: The left ventricle is normal in size and wall thickness. The ejection fraction is estimated to be 50-55%. Basal to mid inferolateral wall, basal anterolateral wall, and basal anterior wall are severely hypokinetic to akinetic. Right Ventricle: The right ventricle is normal size. Right ventricular systolic function is at the lower limits of normal. Atria: The left atrium is moderately dilated. Right atrial size is normal. There is no Doppler evidence for an interatrial shunt. Mitral Valve: There is mild mitral annular calcification. The mitral valve leaflets appear mildly thickened, but open well. There is moderate mitral regurgitation. Aortic Valve: The aortic valve is trileaflet. The aortic valve opens well. There is no aortic valve stenosis. No aortic regurgitation is present. Tricuspid Valve: The tricuspid valve leaflets are thin and pliable. There is moderate tricuspid regurgitation. The right ventricular systolic pressure is estimated to be at least 47 mmHg based on an estimated right atrial pressure of 3 mm Hg. Pulmonic Valve: The pulmonic valve leaflets are thin and pliable; valve motion is normal. There is trace pulmonic regurgitation. Great Vessels: The aortic root is normal size. The dimensions of the ascending aorta are normal. The IVC is of normal diameter and collapses greater than 50% with a sniff. This suggests a low right atrial pressure of 3 mm Hg. Pericardium/ Pleura There is no pericardial effusion. There is a moderate left-sided pleural effusion. MMode/2D Measurements & Calculations LVIDd: 4.3 cm LVOT diam: 2.0 cm LVIDs: 3.0 cm Ao root diam: 2.4 cm FS: 31.0 % asc Aorta Diam: 2.9 cm IVSd: 0.69 cm Ao Arch Diam (Prox Trans): 2.8 cm LVPWd: 0.85 cm LV moore. diameter/BSA (cm/m^2): 2.7 LV sys. diameter/BSA (cm/m^2): 1.9 LA A2 area: 22.2 cm2 RA long axis: 4.6 cm LA A4 area: 15.3 cm2 RA area: 15.4 cm2 LA length (vol): 4.7 cm RA vol: 43.8 ml LA vol: 61.7 ml RA : 27.5 ml/m2 LA vol index: 38.7 ml/m2 IVC diam: 1.4 cm RVD1 (basal): 3.6 cm RVD2 (mid): 2.8 cm TAPSE: 1.6 cm Doppler Measurements & Calculations Ao V2 max: 108.7 cm/sec LVOT Max Bobby: 82.0 cm/sec Ao V2 mean: 77.7 cm/sec LV V1 max P.7 mmHg Ao max P.7 mmHg LV V1 VTI: 17.5 cm Ao mean P.7 mmHg SEB(I,D): 2.2 cm2 Ao V2 VTI: 24.4 cm SEB(V,D): 2.3 cm2 sev ratio: 0.72 SEB indexed to BSA (cm^2/m^2): 1.4 MV E max bobby: 73.7 cm/sec TR max bobby: 329.7 cm/sec MV A max bobby: 44.1 cm/sec TR max P.5 mmHg MV E/A: 1.7 PA pr(Accel): 44.7 mmHg Med Peak E' Bobby: 5.7 cm/sec E/E' med: 12.9 Lat Peak E' Bobby: 6.3 cm/sec E/E' lat: 11.6 E/e' average: 12.3 MV dec time: 0.22 sec MR ERO: 0.25 cm2 MR PISA: 4.1 cm2 SV(LVOT): 54.4 ml MR flow rate: 139.2 cm3/sec MR PISA radius: 0.81 cm Reading Physician:01:27 PM
--- NOTE | 2024-03-02 14:48 | PM.HP.1 ---
History of Present Illness History of Present Illness Date Patient Seen: 03/02/24 Chief complaint: SOB Narrative: The patient is a 83-year-old female with history of PVD, hypertension, and rheumatoid arthritis who is on chronic methotrexate. She developed shortness a breath last evening and then went to bed. She awoke this morning quite short of breath and called for help. EMS reported hypoxia in the mid 80s and agitation upon their arrival. She was placed on a non-rebreather and given DuoNebs. The patient does not have a history of known cardiac disease, or pulmonary disease. She had not been ill before these symptoms began abruptly. She denies any chest pain recently. She also denies any dyspnea on exertion. She does have stairs in her house that she uses on a regular basis and this is not been an issue recently. She denies recent leg edema. ED course. Chest x-ray suggestive of pulmonary edema, BiPAP was placed and Lasix was given. The patient did improve to the point of coming off from Lasix on to simple oxygen. She had a diuresis of over a L. [facility] Medical History Hypertension Peripheral vascular disease Surgical History Hx of tubal ligation Social History household members: none Smoking Status: Never smoker alcohol intake: current Meds Home Medications and Allergies Home Medications Medication Instructions Recorded Confirmed Type aspirin 81 mg tablet,delayed 81 mg PO DAILY 08/07/20 08/07/20 History release (Dianne Low Dose Aspirin) atenolol 50 mg tablet 25 mg PO DAILY 08/07/20 08/07/20 History clopidogrel 75 mg tablet 75 mg PO DAILY 08/07/20 08/07/20 History Allergies Allergy/AdvReac Type Severity Reaction Status Date / Time Penicillins Allergy Mild Rash Verified 08/07/20 08:59 Review of Systems Review of Systems Narrative: All else reviewed and otherwise unremarkable except as noted in the history and physical. Exam Vital Signs (past 8 hours): - 03/02/24 08:14 03/02/24 08:20 03/02/24 08:22 Pulse Rate 133 H 122 H 117 H Respiratory Rate 45 H Blood Pressure 175/109 H 175/109 H Pulse Oximetry 96 93 Oxygen Delivery Method Nasal Cannula Non -Rebreather Oxygen Flow Rate Fraction of Inspired Oxygen 03/02/24 08:25 03/02/24 08:27 03/02/24 08:27 Pulse Rate 109 H 109 H Respiratory Rate 27 H 28 H Blood Pressure 154/84 H Pulse Oximetry 94 92 Oxygen Delivery Method BiPAP Oxygen Flow Rate Fraction of Inspired Oxygen 03/02/24 08:30 03/02/24 08:30 03/02/24 08:30 Pulse Rate 110 H Respiratory Rate 27 H Blood Pressure 146/77 H Pulse Oximetry 91 Oxygen Delivery Method Oxygen Flow Rate Fraction of Inspired Oxygen 40 03/02/24 08:35 03/02/24 08:35 03/02/24 08:40 Pulse Rate 100 H Respiratory Rate 27 H Blood Pressure 135/72 132/69 Pulse Oximetry 92 Oxygen Delivery Method Oxygen Flow Rate Fraction of Inspired Oxygen 03/02/24 08:40 03/02/24 08:45 03/02/24 08:45 Pulse Rate 98 H 90 Respiratory Rate 25 H 25 H Blood Pressure 119/68 Pulse Oximetry 93 93 Oxygen Delivery Method BiPAP Oxygen Flow Rate Fraction of Inspired Oxygen 03/02/24 08:50 03/02/24 08:50 03/02/24 08:55 Pulse Rate 89 Respiratory Rate 25 H Blood Pressure 126/63 105/59 L Pulse Oximetry 94 Oxygen Delivery Method Oxygen Flow Rate Fraction of Inspired Oxygen 03/02/24 08:55 03/02/24 09:00 03/02/24 09:01 Pulse Rate 83 81 Respiratory Rate 24 24 Blood Pressure 121/60 Pulse Oximetry 94 94 Oxygen Delivery Method Oxygen Flow Rate Fraction of Inspired Oxygen 03/02/24 09:01 03/02/24 09:05 03/02/24 09:06 Pulse Rate 79 83 76 Respiratory Rate 23 24 24 Blood Pressure Pulse Oximetry 95 94 95 Oxygen Delivery Method BiPAP Oxygen Flow Rate Fraction of Inspired Oxygen 03/02/24 09:06 03/02/24 09:10 03/02/24 09:10 Pulse Rate 76 Respiratory Rate 23 Blood Pressure 141/64 H 130/61 Pulse Oximetry 95 Oxygen Delivery Method Oxygen Flow Rate Fraction of Inspired Oxygen 03/02/24 09:15 03/02/24 09:15 03/02/24 09:20 Pulse Rate 88 Respiratory Rate 25 H Blood Pressure 125/60 111/57 L Pulse Oximetry 97 Oxygen Delivery Method Oxygen Flow Rate Fraction of Inspired Oxygen 03/02/24 09:20 03/02/24 09:25 03/02/24 09:25 Pulse Rate 79 72 Respiratory Rate 27 H 25 H Blood Pressure 118/58 L Pulse Oximetry 98 98 Oxygen Delivery Method BiPAP Oxygen Flow Rate Fraction of Inspired Oxygen 03/02/24 09:30 03/02/24 09:30 03/02/24 09:35 Pulse Rate 71 Respiratory Rate 26 H Blood Pressure 136/59 L 113/53 L Pulse Oximetry 98 Oxygen Delivery Method Oxygen Flow Rate Fraction of Inspired Oxygen 03/02/24 09:35 03/02/24 09:40 03/02/24 09:40 Pulse Rate 68 68 Respiratory Rate 23 23 Blood Pressure 130/61 Pulse Oximetry 99 99 Oxygen Delivery Method Oxygen Flow Rate Fraction of Inspired Oxygen 03/02/24 09:45 03/02/24 09:45 03/02/24 09:50 Pulse Rate 68 Respiratory Rate 22 Blood Pressure 122/57 L 117/58 L Pulse Oximetry 99 Oxygen Delivery Method Oxygen Flow Rate Fraction of Inspired Oxygen 03/02/24 09:50 03/02/24 09:55 03/02/24 09:55 Pulse Rate 66 69 Respiratory Rate 22 21 Blood Pressure 120/62 Pulse Oximetry 100 100 Oxygen Delivery Method BiPAP Oxygen Flow Rate Fraction of Inspired Oxygen 03/02/24 10:00 03/02/24 10:00 03/02/24 10:05 Pulse Rate 74 Respiratory Rate 22 Blood Pressure 131/63 132/62 Pulse Oximetry 100 Oxygen Delivery Method Oxygen Flow Rate Fraction of Inspired Oxygen 03/02/24 10:05 03/02/24 10:10 03/02/24 10:10 Pulse Rate 68 66 Respiratory Rate 20 22 Blood Pressure 123/64 Pulse Oximetry 100 100 Oxygen Delivery Method Oxygen Flow Rate Fraction of Inspired Oxygen 03/02/24 10:15 03/02/24 10:15 03/02/24 10:20 Pulse Rate 69 Respiratory Rate 23 Blood Pressure 118/55 L 117/59 L Pulse Oximetry 99 Oxygen Delivery Method BiPAP Oxygen Flow Rate Fraction of Inspired Oxygen 03/02/24 10:20 03/02/24 10:25 03/02/24 10:25 Pulse Rate 72 70 Respiratory Rate 21 21 Blood Pressure 117/58 L Pulse Oximetry 100 100 Oxygen Delivery Method Oxygen Flow Rate Fraction of Inspired Oxygen 03/02/24 10:30 03/02/24 10:30 03/02/24 10:35 Pulse Rate 69 69 Respiratory Rate 23 20 Blood Pressure 118/58 L Pulse Oximetry 100 99 Oxygen Delivery Method BiPAP Oxygen Flow Rate Fraction of Inspired Oxygen 03/02/24 10:35 03/02/24 10:40 03/02/24 10:40 Pulse Rate 68 Respiratory Rate 20 Blood Pressure 116/58 L 117/58 L Pulse Oximetry 100 Oxygen Delivery Method BiPAP Oxygen Flow Rate Fraction of Inspired Oxygen 03/02/24 10:45 03/02/24 10:45 03/02/24 10:50 Pulse Rate 70 70 Respiratory Rate 22 22 Blood Pressure 132/62 Pulse Oximetry 100 99 Oxygen Delivery Method Oxygen Flow Rate Fraction of Inspired Oxygen 03/02/24 10:50 03/02/24 10:55 03/02/24 10:55 Pulse Rate 80 Respiratory Rate 20 Blood Pressure 132/63 126/60 Pulse Oximetry 100 Oxygen Delivery Method Oxygen Flow Rate Fraction of Inspired Oxygen 03/02/24 11:00 03/02/24 11:00 03/02/24 11:05 Pulse Rate 74 Respiratory Rate 20 Blood Pressure 120/56 L 118/56 L Pulse Oximetry 100 Oxygen Delivery Method Oxygen Flow Rate Fraction of Inspired Oxygen 03/02/24 11:05 03/02/24 11:10 03/02/24 11:10 Pulse Rate 72 77 Respiratory Rate 20 22 Blood Pressure 126/60 Pulse Oximetry 100 100 Oxygen Delivery Method BiPAP Oxygen Flow Rate Fraction of Inspired Oxygen 03/02/24 11:15 03/02/24 11:15 03/02/24 11:20 Pulse Rate 72 Respiratory Rate 18 Blood Pressure 120/56 L 124/58 L Pulse Oximetry 99 Oxygen Delivery Method Oxygen Flow Rate Fraction of Inspired Oxygen 03/02/24 11:20 03/02/24 11:25 03/02/24 11:25 Pulse Rate 80 74 Respiratory Rate 29 H 26 H Blood Pressure 117/55 L Pulse Oximetry 98 100 Oxygen Delivery Method BiPAP Oxygen Flow Rate Fraction of Inspired Oxygen 03/02/24 11:45 03/02/24 11:50 03/02/24 11:50 Pulse Rate 72 68 Respiratory Rate 39 H 32 H Blood Pressure 133/70 Pulse Oximetry 100 100 Oxygen Delivery Method Oxygen Flow Rate Fraction of Inspired Oxygen 03/02/24 11:55 03/02/24 11:55 03/02/24 12:00 Pulse Rate 66 Respiratory Rate 28 H Blood Pressure 124/62 128/59 L Pulse Oximetry 100 Oxygen Delivery Method Oxygen Flow Rate Fraction of Inspired Oxygen 03/02/24 12:00 03/02/24 12:05 03/02/24 12:05 Pulse Rate 78 75 Respiratory Rate 24 24 Blood Pressure 139/64 Pulse Oximetry 99 100 Oxygen Delivery Method Oxygen Flow Rate Fraction of Inspired Oxygen 03/02/24 12:10 03/02/24 12:10 03/02/24 12:15 Pulse Rate 68 71 Respiratory Rate 29 H 35 H Blood Pressure 129/59 L Pulse Oximetry 100 100 Oxygen Delivery Method Oxygen Flow Rate Fraction of Inspired Oxygen 03/02/24 12:15 03/02/24 12:20 03/02/24 12:20 Pulse Rate 80 Respiratory Rate 20 Blood Pressure 105/55 L 125/55 L Pulse Oximetry 97 Oxygen Delivery Method Oxygen Flow Rate Fraction of Inspired Oxygen 03/02/24 12:25 03/02/24 12:25 03/02/24 12:30 Pulse Rate 68 Respiratory Rate 18 Blood Pressure 134/63 132/63 Pulse Oximetry 96 Oxygen Delivery Method Oxygen Flow Rate Fraction of Inspired Oxygen 03/02/24 12:30 03/02/24 12:35 03/02/24 12:35 Pulse Rate 70 81 Respiratory Rate 23 20 Blood Pressure 140/65 Pulse Oximetry 95 94 Oxygen Delivery Method Oxygen Flow Rate Fraction of Inspired Oxygen 03/02/24 12:40 03/02/24 12:40 03/02/24 12:45 Pulse Rate 69 71 Respiratory Rate 20 20 Blood Pressure 136/63 Pulse Oximetry 95 95 Oxygen Delivery Method Oxygen Flow Rate Fraction of Inspired Oxygen 03/02/24 12:45 03/02/24 12:50 03/02/24 12:50 Pulse Rate 69 Respiratory Rate 18 Blood Pressure 130/55 L 133/60 Pulse Oximetry 95 Oxygen Delivery Method Oxygen Flow Rate Fraction of Inspired Oxygen 03/02/24 12:55 03/02/24 12:55 03/02/24 13:00 Pulse Rate 68 Respiratory Rate 18 Blood Pressure 134/64 138/63 Pulse Oximetry 95 Oxygen Delivery Method Oxygen Flow Rate Fraction of Inspired Oxygen 03/02/24 13:00 03/02/24 13:05 03/02/24 13:05 Pulse Rate 72 68 Respiratory Rate 18 18 Blood Pressure 130/62 Pulse Oximetry 95 93 Oxygen Delivery Method Oxygen Flow Rate Fraction of Inspired Oxygen 03/02/24 13:10 03/02/24 13:10 03/02/24 13:15 Pulse Rate 73 69 Respiratory Rate 18 18 Blood Pressure 135/63 Pulse Oximetry 94 93 Oxygen Delivery Method Oxygen Flow Rate Fraction of Inspired Oxygen 03/02/24 13:15 03/02/24 13:20 03/02/24 13:20 Pulse Rate 75 Respiratory Rate 28 H Blood Pressure 126/62 134/62 Pulse Oximetry 92 Oxygen Delivery Method Nasal Cannula Oxygen Flow Rate 2 Fraction of Inspired Oxygen 03/02/24 13:25 03/02/24 13:25 03/02/24 13:30 Pulse Rate 70 68 Respiratory Rate 18 20 Blood Pressure 123/60 Pulse Oximetry 94 93 Oxygen Delivery Method Oxygen Flow Rate Fraction of Inspired Oxygen 03/02/24 13:30 03/02/24 13:35 03/02/24 13:35 Pulse Rate 68 Respiratory Rate 21 Blood Pressure 123/65 120/58 L Pulse Oximetry 93 Oxygen Delivery Method Oxygen Flow Rate Fraction of Inspired Oxygen 03/02/24 13:40 03/02/24 13:40 03/02/24 13:45 Pulse Rate 72 68 Respiratory Rate 19 23 Blood Pressure 125/58 L Pulse Oximetry 92 Oxygen Delivery Method Nasal Cannula Oxygen Flow Rate 2 Fraction of Inspired Oxygen 03/02/24 13:46 03/02/24 13:46 Pulse Rate 81 Respiratory Rate 22 Blood Pressure 136/64 Pulse Oximetry 94 Oxygen Delivery Method Nasal Cannula Oxygen Flow Rate 2 Fraction of Inspired Oxygen Fraction of Inspired Oxygen 40 Oxygen Delivery Method Nasal Cannula Oxygen Flow Rate 2 Narrative Exam Narrative: NAD, alert and oriented, fluent speech, calm. Normocephalic skull, EOMI, anicteric sclera, symmetric pupils. Oropharynx unremarkable, no droop. Neck supple, midline trachea, no adenopathy. Lungs clear, normal rate and effort. Heart regular, no murmur gallop or rub. JVP is up to jawline. Abdomen is soft, non distended and non tender. Extremities with trace pedal edema. Skin is free of rash or lesions. Joints are not swollen or deformed. Judgment appears to be normal. Objective ECG Impression: NSR, Septal Q waves. Imaging Chest x-ray: Radiologist's impression: New mild bilateral pleural effusions. New moderate bilateral diffuse peribronchial thickening with patchy alveolar and interstitial opacities, suspicious for bronchitis, bronchopneumonia, viral infection or other process. Follow-up suggested. New pulmonary vascular congestion. Previously noted approximately 1 cm nodular density in the right lower lobe unchanged. If indicated, CT chest could be performed for further evaluation. Labs 03/02/24 08:15 03/02/24 08:15 Labs: Laboratory Results - last 24 hr 03/02/24 03/02/24 03/02/24 08:15 09:00 10:17 WBC 10.5 RBC 4.55 Hgb 14.2 Hct 42.5 MCV 93.6 MCH 31.2 MCHC 33.3 RDW 15.3 H Plt Count 353 Neut % (Auto) 53.6 Lymph % (Auto) 30.1 [place] % (Auto) 11.1 Eos % (Auto) 4.4 H Baso % (Auto) 0.8 Neut # (Auto) 5600 Lymph # (Auto) 3100 [place] # (Auto) 1200 H Eos # (Auto) 500 H Baso # (Auto) 100 PT 11.7 INR 1.0 APTT 29 Sodium 133 L Potassium 3.9 Chloride 102 Carbon Dioxide 23 BUN 17 Creatinine 0.72 Estimated GFR > 60 BUN/Creatinine Ratio 23.6 H Glucose 141 H Lactate 2.8 H 2.3 H Calcium 9.3 Total Bilirubin 0.6 AST 65 H ALT 46 H Alkaline Phosphatase 129 H Total Creatine Kinase 45 Troponin I 0.049 H 0.172 H* NT-Pro-B Natriuret Pep 6030 H Total Protein 7.3 Albumin 4.0 Globulin 3.3 Albumin/Globulin Ratio 1.2 Procalcitonin 0.038 Urine Color Yellow Urine Appearance Clear Urine pH 5.5 Ur Specific [place] 1.010 Urine Protein Negative Urine Glucose (UA) Negative Urine Ketones Negative Urine Occult Blood Negative Urine Nitrate Negative Urine Bilirubin Negative Urine Urobilinogen 0.2 Ur Leukocyte Esterase Negative Urine RBC None seen Urine WBC None seen Ur Squamous Epith Cells None seen Urine Bacteria None seen Ur Culture Indicated? Cult not indicated Vol Urine Centrifuged 10ml (spun) Chlamy pneumoniae PCR Not detected Adenovirus (PCR) Not detected B.parapertussis DNA PCR Not detected Coronavirus OC43 (PCR) Not detected Coronavirus HKU1 (PCR) Not detected Coronavirus 229E (PCR) Not detected SARS-CoV-2 (PCR) Not detected Coronavirus NL63 (PCR) Not detected Human Metapneumovir PCR Not detected Influenza Type A (PCR) Not detected Influenza Type B (PCR) Not detected M. pneumoniae (PCR) Not detected Parainfluenza 1 (PCR) Not detected Parainfluenza 2 (PCR) Not detected Parainfluenza 3 (PCR) Not detected Parainfluenza 4 (PCR) Not detected RSV (PCR) Not detected Entero/Rhino (PCR) Not detected Assessment & Plan Assessment & Plan narrative: 1. Acute hypoxic respiratory failure, present on admission and active. 2. Acute CHF with unknown EF, present on admission and active. 3. Hypertension, present on admission and active. 4. Rheumatoid arthritis, present on admission and stable. 5. PVD, present on admission and stable. Plan: -we will diurese with Lasix 40 IV q.12. -echo to assess LV function. -trend troponins x3 to rule out evidence of ischemia. -monitor electrolytes with diuresis. -wean oxygen as able. -continue chronic medications for hypertension and RA. She is DNR, confirmed with her and her daughter at time of admission. Her daughter, Austyn, is her POA. She was admitted inpatient status, expect 2 midnights in the hospital for resolution of medical problems. Time-Based Coding :: 35 min spent with patient and on the chart (including review of chart, obtaining history, exam, reviewing outside data, placing orders, documenting exam and treatment plan, and counseling patient) on 03/02. Quality MIPS - Admit I confirm the patient?s Advance Care Plan is present, Code status is documented, Surrogate decision maker is in patient?s record [If Yes, STOP here]: Yes MIPS - Meds 'Current medications' to include all prescriptions, [id number] products, herbals, cannabis/cannabidiol products, and vitamin/mineral/dietary (nutritional) supplements. I have utilized all available resources to obtain, update, or review the patient?s current medications. [If Yes, STOP here]: Yes
--- NOTE | 2024-03-02 16:00 | PC.NURSE ---
Addendum entered by Taya Lam R.N. 03/02/24 16:05: Daniels catheter draining clear, yellow urine. Original Note: Pt arrived from ED at 1520, A&Ox4, VSS on 2L NC. No c/o pain, very minor crackles auscultated in lungs bilaterally, CMS+, bowel sounds present. No c/o SOB. Tele #1. Pt and daughter oriented to room and call light, provided with snacks and informed how to order dinner. Pt sitting at bedside, call light within reach, no SCDs at this time because she is sitting at bedside.
[2024-03-02 16:14] LABS: Troponin I 0.589 ng/mL (0.01-0.034)
[2024-03-02] MEDS: HEPARIN DRIP 25,000 UNIT/500 ML IV.SOLN 14.174 UNIT IV (17:09)
[2024-03-02] MEDS: HEPARIN 5,000 UNIT/ML VIAL 3500 UNIT IV (17:11)
[2024-03-02] MEDS: ASPIRIN EC 81 MG TABLET PO (17:12)
[2024-03-02] MEDS: ATORVASTATIN 20 MG TABLET 40 MG PO (20:42)
[2024-03-02 23:58] LABS: PTT Partial Thromboplastin Tim 77 SECONDS (25.1-36.5)
[2024-03-03] VITALS: BP 128/55; PULSE 78; RESP 17; TEMP 36.1; O2SAT 96
[2024-03-03 00:13] LABS: Troponin I 0.491 ng/mL (0.01-0.034)
[2024-03-03 05:07] VITALS: BP 127/66; PULSE 79; RESP 16; TEMP 36.1; O2SAT 95
[2024-03-03 06:52] LABS: Add Manual Diff / Slide Review NO; Basophils Absolute Auto 100 /uL (0-100); Eosinophils Absolute Auto 200 /uL (0-450); Eosinophils Percent Auto 2.7 % (2-4); Hematocrit 37.4 % (36-46); Hemoglobin 12.6 g/dL (12.0-16.0); Lymphocytes Absolute Auto 800 /uL (1100-4500); Lymphocytes Percent Auto 13.2 % (25-40); Mean Corpuscular HGB Conc 33.8 % (30-36); Mean Corpuscular Hemoglobin 31.1 PG (26-34); Monocytes Absolute Auto 700 /uL (0-900); Monocytes Percent Auto 10.7 % (3-14); Neutrophils Absolute Auto 4600 /uL (1500-7000); Neutrophils Percent Auto 72.4 % (50-75); Platelet Count 249 X10^3/uL (150-400); Red Blood Cell Count 4.06 X10^6/uL (4.0-5.2); Red Cell Distribution Width 15.4 % (11.6-14.8); White Blood Cell Count 6.4 X10^3/uL (4.5-11.0)
[2024-03-03 07:02] LABS: PTT Partial Thromboplastin Tim 66 SECONDS (25.1-36.5)
[2024-03-03 07:12] LABS: BUN Creatinine Ratio 28.2 (6-22); Blood Urea Nitrogen 20 mg/dL (7-17); Carbon Dioxide 26 mmol/L (22-32); Chloride 101 mmol/L (98-107); Estimated Glomerular Filt Rate > 60 mL/min (>60); Glucose 98 mg/dL (80-110); HEMOLYSIS < 15 (0-50); Potassium 3.6 mmol/L (3.4-5.1); Sodium 133 mmol/L (137-145)
--- NOTE | 2024-03-03 07:54 | P.PN_ITS ---
Subjective Subjective Interval history: She was admitted with acute heart failure and NSTEMI. S: Breathing is improved, but not completely back to normal. She was off from oxygen. She has a pressure in her neck. She was on heparin. She was no leg edema. She denies recent history of exertional chest pain. Exam Vital Signs (past 8 hours): - 03/03/24 00:00 03/03/24 05:07 Temperature 97 F L 96.9 F L Pulse Rate 78 79 Respiratory Rate 17 16 Blood Pressure 128/55 L 127/66 Pulse Oximetry 96 95 Oxygen Flow Rate 2 2 Fraction of Inspired Oxygen 40 Oxygen Delivery Method Nasal Cannula Oxygen Flow Rate 2 Narrative Exam Narrative: NAD, alert and oriented. Fluent speech. Lungs are clear, normal rate and effort. Heart is regular, no murmur gallop or rub. Abdomen is soft, non distended. Extremities are free of edema. Objective ECG Impression: Sinus rhythm with premature atrial complexes Possible Anterior infarct , age undetermined Imaging Chest x-ray: Radiologist's impression: New mild bilateral pleural effusions. New moderate bilateral diffuse peribronchial thickening with patchy alveolar and interstitial opacities, suspicious for bronchitis, bronchopneumonia, viral infection or other process. Follow-up suggested. New pulmonary vascular congestion. Previously noted approximately 1 cm nodular density in the right lower lobe unchanged. If indicated, CT chest could be performed for further evaluation. Labs 03/03/24 06:20 03/03/24 06:20 Labs: Laboratory Results - last 24 hr 03/02/24 03/02/24 03/02/24 08:15 09:00 10:17 WBC 10.5 RBC 4.55 Hgb 14.2 Hct 42.5 MCV 93.6 MCH 31.2 MCHC 33.3 RDW 15.3 H Plt Count 353 Neut % (Auto) 53.6 Lymph % (Auto) 30.1 [place] % (Auto) 11.1 Eos % (Auto) 4.4 H Baso % (Auto) 0.8 Neut # (Auto) 5600 Lymph # (Auto) 3100 [place] # (Auto) 1200 H Eos # (Auto) 500 H Baso # (Auto) 100 PT 11.7 INR 1.0 APTT 29 Sodium 133 L Potassium 3.9 Chloride 102 Carbon Dioxide 23 BUN 17 Creatinine 0.72 Estimated GFR > 60 BUN/Creatinine Ratio 23.6 H Glucose 141 H Lactate 2.8 H 2.3 H Calcium 9.3 Total Bilirubin 0.6 AST 65 H ALT 46 H Alkaline Phosphatase 129 H Total Creatine Kinase 45 Troponin I 0.049 H 0.172 H* NT-Pro-B Natriuret Pep 6030 H Total Protein 7.3 Albumin 4.0 Globulin 3.3 Albumin/Globulin Ratio 1.2 Procalcitonin 0.038 Urine Color Yellow Urine Appearance Clear Urine pH 5.5 Ur Specific [place] 1.010 Urine Protein Negative Urine Glucose (UA) Negative Urine Ketones Negative Urine Occult Blood Negative Urine Nitrate Negative Urine Bilirubin Negative Urine Urobilinogen 0.2 Ur Leukocyte Esterase Negative Urine RBC None seen Urine WBC None seen Ur Squamous Epith Cells None seen Urine Bacteria None seen Ur Culture Indicated? Cult not indicated Vol Urine Centrifuged 10ml (spun) Chlamy pneumoniae PCR Not detected Adenovirus (PCR) Not detected B.parapertussis DNA PCR Not detected Coronavirus OC43 (PCR) Not detected Coronavirus HKU1 (PCR) Not detected Coronavirus 229E (PCR) Not detected SARS-CoV-2 (PCR) Not detected Coronavirus NL63 (PCR) Not detected Human Metapneumovir PCR Not detected Influenza Type A (PCR) Not detected Influenza Type B (PCR) Not detected M. pneumoniae (PCR) Not detected Parainfluenza 1 (PCR) Not detected Parainfluenza 2 (PCR) Not detected Parainfluenza 3 (PCR) Not detected Parainfluenza 4 (PCR) Not detected RSV (PCR) Not detected Entero/Rhino (PCR) Not detected 03/02/24 03/02/24 03/03/24 15:37 23:20 06:20 WBC 6.4 RBC 4.06 Hgb 12.6 Hct 37.4 MCV 92.0 MCH 31.1 MCHC 33.8 RDW 15.4 H Plt Count 249 Neut % (Auto) 72.4 Lymph % (Auto) 13.2 L [place] % (Auto) 10.7 Eos % (Auto) 2.7 Baso % (Auto) 1.0 Neut # (Auto) 4600 Lymph # (Auto) 800 L [place] # (Auto) 700 Eos # (Auto) 200 Baso # (Auto) 100 PT INR APTT 77 H* D 66 H Sodium 133 L Potassium 3.6 Chloride 101 Carbon Dioxide 26 BUN 20 H Creatinine 0.71 Estimated GFR > 60 BUN/Creatinine Ratio 28.2 H Glucose 98 Lactate Calcium 9.0 Total Bilirubin AST ALT Alkaline Phosphatase Total Creatine Kinase Troponin I 0.589 H* 0.491 H* NT-Pro-B Natriuret Pep Total Protein Albumin Globulin Albumin/Globulin Ratio Procalcitonin Urine Color Urine Appearance Urine pH Ur Specific [place] Urine Protein Urine Glucose (UA) Urine Ketones Urine Occult Blood Urine Nitrate Urine Bilirubin Urine Urobilinogen Ur Leukocyte Esterase Urine RBC Urine WBC Ur Squamous Epith Cells Urine Bacteria Ur Culture Indicated? Vol Urine Centrifuged Chlamy pneumoniae PCR Adenovirus (PCR) B.parapertussis DNA PCR Coronavirus OC43 (PCR) Coronavirus HKU1 (PCR) Coronavirus 229E (PCR) SARS-CoV-2 (PCR) Coronavirus NL63 (PCR) Human Metapneumovir PCR Influenza Type A (PCR) Influenza Type B (PCR) M. pneumoniae (PCR) Parainfluenza 1 (PCR) Parainfluenza 2 (PCR) Parainfluenza 3 (PCR) Parainfluenza 4 (PCR) RSV (PCR) Entero/Rhino (PCR) PFSH Medical History Hypertension Peripheral vascular disease Surgical History Hx of tubal ligation Social History household members: none Smoking Status: Never smoker alcohol intake: current Assessment & Plan Assessment & Plan narrative: 1. Acute hypoxic respiratory failure, present on admission and active. 2. Acute CHF with unknown EF, present on admission and active. 3. NSTEMI, new and active. Troponin 0.172, 0.589, 0.491. 3. Hypertension, present on admission and active. 4. Rheumatoid arthritis, present on admission and stable. 5. PVD, present on admission and stable. Plan: -continue with Lasix 40 IV q.12. -echo to assess LV function. Done this AM with results pending. -trend troponins over next 24 hours. -monitor electrolytes with diuresis. -off O2. -continue chronic medications for hypertension and RA. MTX will be given today. She is DNR, confirmed with her and her daughter at time of admission. Her daughter, Austyn, is her POA. YAKELIN 03/05. Time-Based Coding :: [TOTAL MINUTES] spent with patient and on the chart (including review of chart, obtaining history, exam, reviewing outside data, placing orders, documenting exam and treatment plan, and counseling patient) on [DATE]. Quality VTE Deep Vein Thrombosis/Pulmonary Embolism Present on Admission: No
[2024-03-03 07:59] VITALS: BP 134/56; PULSE 75; RESP 19; O2SAT 94
[2024-03-03] MEDS: ASPIRIN EC 81 MG TABLET PO (09:37)
[2024-03-03] MEDS: FUROSEMIDE 40 MG/4 ML VIAL IV (09:37)
[2024-03-03 11:00] VITALS: O2SAT 95
[2024-03-03] MEDS: ACETAMINOPHEN 325 MG TABLET 650 MG PO (11:14)
--- NOTE | 2024-03-03 11:31 | CM.DANOTE ---
DCP Assessment Note: Pt is a 83yo female, resident of [place], is admitted for CHF and SOB. Pt lives in an apartment on the same property as her daughter/Austyn [place]. Pt's Primary Care Provider is HANG Mercado and insurance is Medicare. Reviewed chart and team rounds for pt's medical status and initial discharge needs. Per hospitalist, pt will complete an echocardiogram today DCP met w/patient at bedside; introduced self and role. Patient was found in bed, alert and oriented, cooperative with assessment. Pt confirmed living situation and good support in daughter/family. Pt expressed preference in returning home when stable, declined any referrals for or other services at this time. Plan: Anticipating discharge home with family when medically stable. CM team will follow closely for coordination of discharge plans. DEEPA [place] Discharge Planning/Care Management CM Discharge Assessment Start: 03/03/24 11:29 Freq: Status: Active Protocol: Document 03/03/24 11:29 MW (Rec: 03/03/24 11:30 MW [id number]) Discharge Planning Assessment Assigned Games Manager ROSMERY Baires DPOA/Assigned Designee Name Chuyita Johnson Contact Information [phone] Advance Directives? Yes Advance Directives on File No History Provided By Patient,Medical Record Has Patient been admitted in last 30 No days? Prior Living Arrangements House Household Members none Type of transporation used prior to Drives own vehicle admit Independent with ADL's Yes Is patient alert and oriented? Yes Caregiver for Another No Comment Patient states she has a FWW and cane but does not use it. Barriers to Discharge No Discharge Plan Home Whiteboard Updated in Patient Room with Yes name and ext. # of Games Manager Comment [phone] Review Status In Process Please Provide Date Initial DC 03/03/24 Assessment Was Performed Next Review Type Continued Stay Review
[2024-03-03 12:00] VITALS: BP 100/46; PULSE 82; RESP 16; TEMP 36.6; O2SAT 96
[2024-03-03 12:11] LABS: PTT Partial Thromboplastin Tim 57 SECONDS (25.1-36.5)
[2024-03-03] MEDS: MAGNESIUM OXIDE 400 MG TABLET PO (12:11)
--- NOTE | 2024-03-03 16:50 | PM.DS.1 ---
History of Present Illness History of Present Illness Chief complaint: SOB Narrative: The patient is a 83-year-old female with history of PVD, hypertension, and rheumatoid arthritis who is on chronic methotrexate. She developed shortness a breath last evening and then went to bed. She awoke this morning quite short of breath and called for help. EMS reported hypoxia in the mid 80s and agitation upon their arrival. She was placed on a non-rebreather and given DuoNebs. The patient does not have a history of known cardiac disease, or pulmonary disease. She had not been ill before these symptoms began abruptly. She denies any chest pain recently. She also denies any dyspnea on exertion. She does have stairs in her house that she uses on a regular basis and this is not been an issue recently. She denies recent leg edema. ED course. Chest x-ray suggestive of pulmonary edema, BiPAP was placed and Lasix was given. The patient did improve to the point of coming off from Lasix on to simple oxygen. She had a diuresis of over a L. Discharge Providers Provider Date of admission: 03/02/24 12:08 Discharge Date: 03/03/24 Consults: Discussed on the telephone with Dr. Yun, cardiology. Discharge provider: Yonas Castellano MD Summary Hospital Course Discharge Diagnosis: 1. Acute hypoxic respiratory failure, present on admission and active. 2. 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 3. NSTEMI, new and active. Troponin 0.172, 0.589, 0.491. 3. Hypertension, present on admission and active. 4. Rheumatoid arthritis, present on admission and stable. 5. PVD, present on admission and stable. Hospital Course: The patient presented with acute pulmonary edema and acute hypoxic respiratory failure. She required BiPAP and diuresis in the emergency department. She was able to wean off from BiPAP over the next several hours. The patient had good diuresis with IV furosemide. She had an elevated troponin which peaked at 0.589 over the next 12 hours. She had no chest pain and has no cardiac history. 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 An echo was obtained on March 03 revealing multiple wall motion abnormalities. She was on heparin since shortly after her arrival for unstable angina versus ACS. She was discussed with Dr. Yun of Cardiology, who felt that she would be best served with a coronary angiogram. Arrangements were made to transfer her to [facility] for ongoing care and a coronary angiogram. She takes weekly methotrexate and was given methotrexate on March 03 in the hospital to keep her on scheduled. This is for advanced rheumatoid arthritis. Status at Discharge Cognitive/behavioral status at discharge: oriented Functional status at discharge: independent ambulation Overall status at discharge: patient is back to baseline Time Spent with Patient Time spent: Greater than 30 minutes Exam Vital Signs (past 8 hours): - 03/03/24 11:00 03/03/24 12:00 Temperature 98 F Pulse Rate 82 Respiratory Rate 16 Blood Pressure 100/46 L Pulse Oximetry 95 96 Oxygen Delivery Method Room Air Fraction of Inspired Oxygen 40 Oxygen Delivery Method Room Air Oxygen Flow Rate 0 Narrative Exam Narrative: NAD, alert and oriented. Fluent speech. Lungs are clear, normal rate and effort. Heart is regular, no murmur gallop or rub. Abdomen is soft, non distended. Extremities are free of edema. Objective ECG Impression: Sinus rhythm with premature atrial complexes Possible Anterior infarct , age undetermined Imaging Multiple studies:: Radiologist's impression: Echo: 1) Normal left ventricular size and thickness with low normal systolic function (EF 50-55%). 2) Basal to mid inferolateral wall, basal anterolateral wall, and basal anterior wall are severely hypokinetic to akinetic. 3) Normal right ventricular size with low normal function. 4) There is moderate mitral regurgitation. 5) There is moderate tricuspid regurgitation. 6) The right ventricular systolic pressure is estimated to be at least 47 mmHg based on an estimated right atrial pressure of 3 mm Hg. 7) There is a moderate left-sided pleural effusion. 8) Compared to the Echo done 08/25/2017, wall motion abnormalities described above are new on this study. Chest x-ray: New mild bilateral pleural effusions left greater than right. New moderate bilateral diffuse peribronchial thickening with patchy alveolar and interstitial opacities, suspicious for bronchitis, bronchopneumonia, viral infection or other process. Follow-up suggested. New mildly prominent huan, pulmonary vascular congestion. Moderate calcifications of the aortic arch and descending aorta unchanged. Moderate degenerative changes of the thoracic spine and shoulders unchanged. No pneumothorax. Cardiopericardial silhouette within normal limits in size. Previously noted approximately 1 cm nodular density in the right lower lobe is again noted unchanged. Artifacts from cardiac leads, lines, tubes and other extrinsic artifacts partially limit radiographic detail Labs 03/03/24 06:20 03/03/24 06:20 Labs: Laboratory Results - last 24 hr 03/02/24 03/03/24 03/03/24 23:20 06:20 11:50 WBC 6.4 RBC 4.06 Hgb 12.6 Hct 37.4 MCV 92.0 MCH 31.1 MCHC 33.8 RDW 15.4 H Plt Count 249 Neut % (Auto) 72.4 Lymph % (Auto) 13.2 L [place] % (Auto) 10.7 Eos % (Auto) 2.7 Baso % (Auto) 1.0 Neut # (Auto) 4600 Lymph # (Auto) 800 L [place] # (Auto) 700 Eos # (Auto) 200 Baso # (Auto) 100 APTT 77 H* D 66 H 57 H Sodium 133 L Potassium 3.6 Chloride 101 Carbon Dioxide 26 BUN 20 H Creatinine 0.71 Estimated GFR > 60 BUN/Creatinine Ratio 28.2 H Glucose 98 Calcium 9.0 Troponin I 0.491 H* PFSH Medical History Hypertension Peripheral vascular disease Surgical History Hx of tubal ligation Social History household members: none Smoking Status: Never smoker alcohol intake: current Discharge Assessment & Plan Assessment and Plan Assessment: 1. Acute hypoxic respiratory failure, present on admission and active. 2. 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 3. NSTEMI, new and active. Troponin 0.172, 0.589, 0.491. 3. Hypertension, present on admission and active. 4. Rheumatoid arthritis, present on admission and stable. 5. PVD, present on admission and stable. Plan of Treatment: Transfer to [facility] for Cardiology evaluation with coronary angiogram. She will be transported via [facility] ambulance with cardiac monitoring and a heparin drip. Discharge Plan Discharge Plan Patient Disposition: [facility] Other facility: [facility] Under care of provider: Drs. Bernard and Jama Provider Discharge Comment: Stable for transfer to [facility] via [facility] ambulance. Discharge orders & Medications Prescriptions: No Action clopidogrel 75 mg Tablet 75 mg PO DAILY atenolol 50 mg Tablet 25 mg PO DAILY methotrexate sodium 2.5 mg tablet 15 mg PO WEEKLY Patient Comments: takes 6 tabs tuesday nights Discharge Health Status Multidrug resistant organism: No MDRO Diet/Activity/Treatments Diet: Regular Quality VTE Deep Vein Thrombosis/Pulmonary Embolism Present on Admission: No MIPS - DC The patient has a history of heart transplant or Left Ventricular Assist Device (LVAD). If yes, STOP here.: No The patient has current or prior documentation of left ventricular ejection fraction (LVEF) less than or equal to 40%, or moderate or severely depressed left ventricular systolic function.: No
[2024-03-03 16:57] VITALS: BP 140/63; PULSE 83; RESP 17; TEMP 37; O2SAT 97
--- NOTE | 2024-03-03 17:22 | PC.NURSE ---
Nurse to nurse report given to DEEPTHI Albarran at [facility] at 1711 to 1722. All questions answered.
[2024-03-03 18:25] LABS: PTT Partial Thromboplastin Tim 59 SECONDS (25.1-36.5)
--- NOTE | 2024-03-03 18:45 | PC.NURSE ---
Gave report to Demetra, Cinema Operator with [facility] for the pt to be transferred to [facility] room 327 at 1837. All questions answered. Ambulance crew is taking the heparin drip at 11 units/kg/hr. Pt is A&Ox4, VSS, afebrile, able to make needs known. Denies chest pain and SOB. Pt was able to walk to ambulance stretcher and sit down on the stretcher without any difficulties.
== END 2024-03-03 18:54 | disposition short-term general hospital (02) | DRG 280 ==
LOC: ED 11:47 → AC 12:09
PROVIDERS: Internal Medicine; Admitting Provider Hospitalist; Emergency Provider Emergency Medicine; Referring Provider Emergency Medicine; Visit Provider Hospitalist
DX: I11.0 Hypertensive heart disease with heart failure (principal); J96.01 Acute respiratory failure with hypoxia; I21.4 Non-ST elevation (NSTEMI) myocardial infarction; D84.821 Immunodeficiency due to drugs; I50.9 Heart failure, unspecified; M06.9 Rheumatoid arthritis, unspecified; I73.9 Peripheral vascular disease, unspecified; Z79.631 Long term (current) use of antimetabolite agent; Z66 Do not resuscitate
CPT/HCPCS: 36415; 71045; 80048; 80053; 81001; 82550; 83605; 83880; 84145; 84484; 85025; 85610; 85730; 87040; 87633; 93005; 93306; 94660; 94762; 96365; 96367; 96375; 99285; 99291; J0696; J1644; J1940; J8610